=== PATIENT | female | born 1945 | race Caucasian/White ===

== ENCOUNTER 2018-04-25 17:07 | Inpatient (IN) | payer MEDICARE, OTHER ==
[2018-04-25 18:12] LABS: CHLORIDE,CL 104 mEq/L (98-106); SODIUM,NA 140 mEq/L (136-145)
--- NOTE | 2018-04-25 18:34 | EDM.PDOC ---
ED HPI GENERAL MEDICAL PROBLEM - General Chief Complaint: General Stated Complaint: malaise Time Seen by Provider: 04/25/18 18:14 - History of Present Illness INITIAL COMMENTS - FREE TEXT/NARRATIVE: Chely is a pleasant 72 year old female with PMH of type II DM, anemia, hypertension, hyperlipidemia, depression, gout, morbid obesity, and CKD, who presents to the ED via private vehicle with generalized complaint of not feeling well. She reports that since about Sunday she has not felt well. reports he noticed she was maybe a little more confused today, so he brought her in. She reports over the course of the week she has gotten more weak. She reports she did have a cough this week, but that has seemed to improve. She denies any fever, but has had some chills. She denies any dizziness , sinus congestion, chest pain, shortness of breath, abdominal pain, N/V/D, dysuria, urinary frequency/urgency. Has no real complaints other than malaise. She reports her edema in her legs is better than baseline today, does have chronic BLE edema. She reports she has been eating and drinking per normal. She has no additional complaints. Onset Date: 04/21/18 Duration: Getting Worse Location: Reports: Generalized Associated Symptoms: Reports: Confusion, Cough, cough w sputum, Fever/Chills ( chills, no fever), Malaise, Weakness. Denies: Chest Pain, Diaphoresis, Headaches, Loss of Appetite, Nausea/Vomiting, Rash, Seizure, Shortness of Breath , Syncope - Related Data Allergies Allergy/AdvReac Type Severity Reaction Status Date / Time codeine Allergy Nausea Verified 04/25/18 17:24 Home Meds: Home Meds Acetaminophen [Tylenol Arthritis Pain] 650 mg PO Q8HR PRN 12/02/13 [History] Aspirin 81 mg PO DAILY 12/02/13 [History] Atenolol 100 mg PO DAILY 12/02/13 [History] Calc/D3/Mag/Zn/Disability Services Coordinator/Jeremy/Smock [Calcium 600 MG Plus Vit D] 2 each PO DAILY [History] Citalopram Hydrobromide [Citalopram HBr] 20 mg PO DAILY 12/02/13 [History] Cyanocobalamin (Vitamin B12) [Vitamin B12] 2,000 mcg IM ASDIRECTED 12/02/13 [ History] Furosemide 80 mg PO DAILY 12/02/13 [History] Glimepiride 2 mg PO DAILY 12/02/13 [History] Iron 3 tab PO DAILY 12/02/13 [History] Lisinopril [Prinivil] 20 mg PO DAILY 12/02/13 [History] Potassium 2 tab PO DAILY 12/02/13 [History] Cholecalciferol (Vitamin D3) [Vitamin D3] 6,000 unit PO DAILY 04/25/18 [History] Insulin Glargine,Hum.Rec.Anlog [Basaglar Kwikpen U-100] 36 unit SQ BID 04/25/18 [History] Magnesium Oxide/Mag AA Chelate [Magnesium] 300 mg PO DAILY 04/25/18 [History] Past Medical History HEENT History: Reports: Cataract Cardiovascular History: Reports: Heart Failure, Hypertension, SOB on Exertion Respiratory History: Reports: SOB Genitourinary History: Reports: Renal Calculus Musculoskeletal History: Reports: Arthritis, Gout, Osteoporosis Psychiatric History: Reports: Anxiety, Depression Endocrine/Metabolic History: Reports: Diabetes, Type II, IDDM, Obesity/BMI 30+, Vitamin D Deficiency Hematologic History: Reports: Anemia, B12 Deficiency Oncologic (Cancer) History: Reports: Basal Cell Carcinoma - Past Surgical History HEENT Surgical History: Reports: None Cardiovascular Surgical History: Reports: None Respiratory Surgical History: Reports: None GI Surgical History: Reports: Cholecystectomy, Colonoscopy, Hernia, Abdominal Musculoskeletal Surgical History: Reports: None Social & Family History - Tobacco Use Smoking Status *Q: Never Smoker ED ROS GENERAL - Review of Systems Review Of Systems: See Below Constitutional: Reports: Chills, Malaise, Weakness, Fatigue. Denies: Fever, Decreased Appetite HEENT: Reports: No Symptoms Respiratory: Reports: Cough, Sputum. Denies: Shortness of Breath, Wheezing, Pleuritic Chest Pain, Hemoptysis Cardiovascular: Reports: Dyspnea on Exertion, Edema (trace BLE), Orthopnea. Denies: Chest Pain, Blood Pressure Problem, Lightheadedness, Palpitations, Syncope Endocrine: Reports: Fatigue, Low Glucose GI/Abdominal: Denies: Abdominal Pain, Black Stool, Bloody Stool, Constipation, Diarrhea, Decreased Appetite, Nausea, Vomiting : Reports: No Symptoms. Denies: Dysuria, Frequency, Urgency Musculoskeletal: Reports: No Symptoms Skin: Reports: Dryness Neurological: Reports: Confusion, Difficulty Walking (weakness), Weakness. Denies: Dizziness, Headache, Numbness, Tingling Psychiatric: Reports: No Symptoms Hematologic/Lymphatic: Reports: No Symptoms Immunologic: Reports: No Symptoms ED EXAM, GENERAL - Physical Exam Exam: See Below Exam Limited By: No Limitations General Appearance: Alert, WD/WN, No Apparent Distress Eye Exam: Bilateral Eye: EOMI, Normal Fundi, Normal Inspection, PERRL Head: Atraumatic, Normocephalic Neck: Normal Inspection, Supple, Non-Tender, Full Range of Motion Respiratory/Chest: No Respiratory Distress, No Accessory Muscle Use, Chest Non- Tender, Decreased Breath Sounds, Rhonchi (throughout). No: Accessory Muscle Use Cardiovascular: Normal Peripheral Pulses, No JVD, Systolic Murmur (grade I), Irregularly Irregular GI/Abdominal: Normal Bowel Sounds, Soft, Non-Tender, No Organomegaly, No Distention, No Abnormal Bruit, No Mass Back Exam: Normal Inspection, Full Range of Motion. No: CVA Tenderness (L), CVA Tenderness (R) Extremities: Non-Tender, Normal Capillary Refill, Pedal Edema (trace BLE), Redness. No: Increased Warmth Neurological: Alert, Oriented, CN II-XII Intact, Normal Cognition, No Motor/ Sensory Deficits Psychiatric: Normal Affect, Normal Mood Skin Exam: Warm, Dry, Intact Lymphatic: No Adenopathy EKG INTERPRETATION EKG Date: 04/25/18 Time: 18:01 Rhythm: A-Fib Rate (Beats/Min): 65 Course - Vital Signs Last Recorded V/S: Last Vital Signs Temp 97.7 F 04/25/18 19:05 Pulse 53 L 04/25/18 19:05 Resp 22 H 04/25/18 19:05 BP 101/42 L 04/25/18 19:05 Pulse Ox 97 04/25/18 19:05 - Orders/Labs/Meds Orders: Active Orders 24 hr Category Date Time Status Patient Status Manage Transfer [TRANSFER] Routine ADT 04/25/18 19:00 Ordered EKG Documentation Completion [RC] STAT Care 04/25/18 17:41 Active Chest 2V [CR] Stat Exams 04/25/18 18:21 Taken CULTURE URINE [RM] Stat Lab 04/25/18 17:53 Received NS + KCl 20mEq/L [Normal Saline with 20 mEq KCl] 1,000 Med 04/25/18 18:45 Active ml IV ASDIRECTED Resuscitation Status Routine Resus Stat 04/25/18 19:01 Ordered EKG 12 Lead [EK] Routine Ther 04/25/18 17:41 Stop Req Medication Orders Potassium Chloride/Sodium Chloride (Normal Saline With 20 Meq Kcl) 1,000 mls @ 75 mls/hr IV ASDIRECTED CINTHIA Last Admin: 04/25/18 19:03 Dose: 75 mls/hr Labs: Laboratory Tests 04/25/18 04/25/18 04/25/18 Range/Units 17:50 17:50 17:50 WBC 13.8 H (5.0-10.0) 10^3/uL RBC 3.67 L (4.00-5.50) 10^6/uL Hgb 10.2 L (12.0-16.0) g/dL Hct 33.0 L (37.0-47.0) % MCV 89.9 (82.0-94.0) fL MCH 27.8 (27.0-32.0) pg MCHC 30.9 L (33.0-38.0) g/dL RDW Coeff of Chris 16.9 H (11.0-15.0) % Plt Count 839 H (150-400) 10^3/uL Neut % (Auto) 79.3 (35-85) % Lymph % (Auto) 14.7 (10-55) % [place] % (Auto) 5.2 (0-16) % Eos % (Auto) 0.7 (0-5) % Baso % (Auto) 0.1 (0-3) % Neut # (Auto) 10.96 H (1.80-7.00) 10^3/uL Lymph # (Auto) 2.04 (1.00-4.80) 10^3/uL [place] # (Auto) 0.72 (0.00-0.80) 10^3/uL Eos # (Auto) 0.10 (0.00-0.45) 10^3/uL Baso # (Auto) 0.02 10^3/uL Sodium 140 (136-145) mEq/L Potassium 3.7 (3.5-5.0) mEq/L Chloride 104 (98-106) mEq/L Carbon Dioxide 25 (21-32) mmol/L BUN 70 H D (7-18) mg/dL Creatinine 2.2 H (0.6-1.0) mg/dL Est Cr Clr Drug Dosing 21.96 mL/min Estimated GFR (MDRD) 22 L (>=60) mL/min Glucose 51 L D (75-99) mg/dL Calcium 8.8 (8.4-10.1) mg/dL Total Bilirubin 0.2 (0.0-1.0) mg/dL AST 14 L (15-37) U/L ALT 11 L (12-78) U/L Alkaline Phosphatase 62 (46-116) U/L Troponin I < 0.017 (0.00-0.06) ng/mL C-Reactive Protein 30.4 H (0.2-0.8) mg/dL Total Protein 6.2 L (6.4-8.2) g/dL Albumin 2.2 L (3.4-5.0) g/dL Urine Color (YELLOW) Urine Appearance (CLEAR) Urine pH (4.5-8.0) Ur Specific [place] (1.003-1.020) Urine Protein (NEGATIVE) mg/dL Urine Glucose (UA) (NEGATIVE) mg/dL Urine Ketones (NEGATIVE) mg/dL Urine Occult Blood (NEGATIVE) Urine Nitrite (NEGATIVE) Urine Bilirubin (NEGATIVE) Urine Urobilinogen (0.2-1.0) EU/dL Ur Leukocyte Esterase (NEGATIVE) Urine RBC (0-5) /HPF Urine WBC (0-5) /HPF Ur Squamous Epith Cells (NOT SEEN) /HPF Urine Bacteria (NOT SEEN) /HPF 04/25/18 Range/Units 17:53 WBC (5.0-10.0) 10^3/uL RBC (4.00-5.50) 10^6/uL Hgb (12.0-16.0) g/dL Hct (37.0-47.0) % MCV (82.0-94.0) fL MCH (27.0-32.0) pg MCHC (33.0-38.0) g/dL RDW Coeff of Chris (11.0-15.0) % Plt Count (150-400) 10^3/uL Neut % (Auto) (35-85) % Lymph % (Auto) (10-55) % [place] % (Auto) (0-16) % Eos % (Auto) (0-5) % Baso % (Auto) (0-3) % Neut # (Auto) (1.80-7.00) 10^3/uL Lymph # (Auto) (1.00-4.80) 10^3/uL [place] # (Auto) (0.00-0.80) 10^3/uL Eos # (Auto) (0.00-0.45) 10^3/uL Baso # (Auto) 10^3/uL Sodium (136-145) mEq/L Potassium (3.5-5.0) mEq/L Chloride (98-106) mEq/L Carbon Dioxide (21-32) mmol/L BUN (7-18) mg/dL Creatinine (0.6-1.0) mg/dL Est Cr Clr Drug Dosing mL/min Estimated GFR (MDRD) (>=60) mL/min Glucose (75-99) mg/dL Calcium (8.4-10.1) mg/dL Total Bilirubin (0.0-1.0) mg/dL AST (15-37) U/L ALT (12-78) U/L Alkaline Phosphatase (46-116) U/L Troponin I (0.00-0.06) ng/mL C-Reactive Protein (0.2-0.8) mg/dL Total Protein (6.4-8.2) g/dL Albumin (3.4-5.0) g/dL Urine Color Yellow (YELLOW) Urine Appearance Slightly cloudy (CLEAR) Urine pH 5.0 (4.5-8.0) Ur Specific [place] <= 1.005 (1.003-1.020) Urine Protein Negative (NEGATIVE) mg/dL Urine Glucose (UA) Negative (NEGATIVE) mg/dL Urine Ketones Negative (NEGATIVE) mg/dL Urine Occult Blood Moderate H (NEGATIVE) Urine Nitrite Negative (NEGATIVE) Urine Bilirubin Negative (NEGATIVE) Urine Urobilinogen 0.2 (0.2-1.0) EU/dL Ur Leukocyte Esterase Moderate H (NEGATIVE) Urine RBC 10-20 H (0-5) /HPF Urine WBC 50-75 H (0-5) /HPF Ur Squamous Epith Cells Few H (NOT SEEN) /HPF Urine Bacteria Moderate H (NOT SEEN) /HPF Meds: Medications Generic Name Dose Route Start Last Admin Trade Name Raz PRN Reason Stop Dose Admin Potassium Chloride/Sodium Chloride 1,000 mls @ 75 mls/hr 04/25/18 18:45 04/25 19:03 Normal Saline With 20 Meq Kcl IV 75 mls/hr ASDIRECTED [facility] Administration - Re-Assessments/Exams Free Text/Narrative Re-Assessment/Exam: Discussed labs, chest xray, and EKG findings with patient and spouse. Labs reveal UTI, with significant elevation of CRP and elevated WBCs. Hgb stable at baseline. Creatinine elevated to 2.2. Glucose 51. Patient given OJ. Recheck glucose 83. Discussed recommended admission to the hospital. Patient and spouse agreeable with admission. Departure - Departure Time of Disposition: 19:16 Disposition: Admitted As Inpatient 67 Condition: Fair Clinical Impression: Acute on chronic renal insufficiency, Atrial fibrillation with controlled ventricular rate UTI (urinary tract infection) Qualifiers: Urinary tract infection type: acute cystitis Hematuria presence: without hematuria Qualified Code(s): N30.00 - Acute cystitis without hematuria Type II diabetes mellitus Qualifiers: Diabetes mellitus chcf insulin use: with chcf use Diabetes mellitus complication status: with kidney complications Diabetes mellitus complication detail: with chronic kidney disease Chronic kidney disease stage: stage 3 ( moderate) Qualified Code(s): E11.22 - Type 2 diabetes mellitus with diabetic chronic kidney disease - Discharge Information *PRESCRIPTION DRUG MONITORING PROGRAM REVIEWED*: Not Applicable *COPY OF PRESCRIPTION DRUG MONITORING REPORT IN PATIENT NIXON: Not Applicable Referrals: Waleska Rock PA-C [Primary Care Provider] - Forms: ED Department Discharge - Problem List & Annotations (1) UTI, Urinary tract infectious disease SNOMED Code(s): 25100439 Code(s): N39.0 - URINARY TRACT INFECTION, SITE NOT SPECIFIED Status: Acute Priority: High Current Visit: No (2) Atrial fibrillation with controlled ventricular rate SNOMED Code(s): 12995646 Code(s): I48.91 - UNSPECIFIED ATRIAL FIBRILLATION Status: Acute Current Visit: Yes (3) Acute on chronic renal insufficiency SNOMED Code(s): 664121439 Code(s): N28.9 - DISORDER OF KIDNEY AND URETER, UNSPECIFIED; N18.9 - CHRONIC KIDNEY DISEASE, UNSPECIFIED Status: Acute Current Visit: Yes (4) Type II diabetes mellitus SNOMED Code(s): 06775086 Code(s): E11.9 - TYPE 2 DIABETES MELLITUS WITHOUT COMPLICATIONS Status: Acute Current Visit: Yes Qualifiers: Diabetes mellitus shingle carrier insulin use: with chcf use Diabetes mellitus complication status: with kidney complications Diabetes mellitus complication detail: with chronic kidney disease Chronic kidney disease stage : stage 3 (moderate) Qualified Code(s): E11.22 - Type 2 diabetes mellitus with diabetic chronic kidney disease; N18.3 - Chronic kidney disease, stage 3 ( moderate); Z79.4 - [facility] (current) use of insulin - Problem List Review Problem List Initiated/Reviewed/Updated: Yes - My Orders Last 24 Hours: My Active Orders 04/25/18 17:41 EKG Documentation Completion [RC] STAT EKG 12 Lead [EK] Routine 04/25/18 17:53 CULTURE URINE [RM] Stat 04/25/18 18:21 Chest 2V [CR] Stat 04/25/18 18:45 NS + KCl 20mEq/L [Normal Saline with 20 mEq KCl] 1,000 ml IV ASDIRECTED 04/25/18 19:00 Patient Status Manage Transfer [TRANSFER] Routine 04/25/18 19:01 Resuscitation Status Routine - Assessment/Plan Admission H&P: Please use this note as an admission H&P Last 24 Hours: My Active Orders 04/25/18 17:41 EKG Documentation Completion [RC] STAT EKG 12 Lead [EK] Routine 04/25/18 17:53 CULTURE URINE [RM] Stat 04/25/18 18:21 Chest 2V [CR] Stat 04/25/18 18:45 NS + KCl 20mEq/L [Normal Saline with 20 mEq KCl] 1,000 ml IV ASDIRECTED 04/25/18 19:00 Patient Status Manage Transfer [TRANSFER] Routine 04/25/18 19:01 Resuscitation Status Routine Plan: UA positive. Cultured urine. Start IV Rocephin. CXR reveals no obvious infiltrates Creatinine elevated to 2.2. Baseline creatinine 1.5-1.7. Hold lasix. NS with 20 KCL at 75 mL/hr. Recheck labs in am. EKG reveals new onset atrial fibrillation. Will get echocardiogram in am. CHADS2 Score 3. INR in am. Initiate Coumadin therapy. Discussed risk of stroke etc. with patient and . Discussed risks vs. benefits of anticoagulation. They were agreeable to initiating anticoagulation. QID AC. Consistent carb diet. Home dose basalglar with low dose SSI. Consult PT for strengthening Admit acute with telemetry to Dr. Mata. Patient transferred to floor in satisfactory condition.
[2018-04-25] MEDS ORDERED: NS + KCl 20mEq/L 1,000 ML IV SCH (18:45)
[2018-04-25] MEDS ORDERED: Temazepam 15 MG Cap PO PRN (19:52)
[2018-04-25] MEDS ORDERED: Magnesium Hydroxide 400 MG/5 ML Susp 30 ML Cup PO PRN (19:52)
[2018-04-25] MEDS ORDERED: Sodium Chloride 0.9% 500 ML IV ONE (20:00)
[2018-04-25] MEDS: cefTRIAXone 1 GM Vial IVPUSH SCH (20:36)
[2018-04-25] MEDS: Insulin Aspart 100 Units/ML 3 ML Pen SUBCUT SCH (20:47)
[2018-04-25] MEDS: Insulin Detemir 100 Units/ML 3 ML Pen SUBCUT SCH (21:39)
[2018-04-26] MEDS: Acetaminophen 325 MG Tab PO PRN ×2 (04:34→13:09)
[2018-04-26] MEDS: Aspirin 81 MG Tab.Chew PO SCH (07:51)
[2018-04-26] MEDS: Atenolol 50 MG Tab PO SCH (07:51)
[2018-04-26] MEDS: Lisinopril 20 MG Tab PO SCH (07:51)
[2018-04-26] MEDS: Citalopram 10 MG Tab PO SCH (07:51)
[2018-04-26] MEDS: Insulin Aspart 100 Units/ML 3 ML Pen SUBCUT SCH ×4 (07:52→20:45)
[2018-04-26] MEDS ORDERED: Insulin Detemir 100 Units/ML 3 ML Pen SUBCUT ONE (09:43)
[2018-04-26] MEDS: Insulin Detemir 100 Units/ML 3 ML Pen SUBCUT SCH ×2 (09:49→20:43)
[2018-04-26] MEDS: Sodium Chloride 0.9% 1,000 ML IV SCH (10:30)
[2018-04-26] MEDS: Nystatin Crm 30 GM Tube TOP PRN ×2 (11:31→20:42)
[2018-04-26] MEDS: Warfarin 5 MG Tab PO SCH (12:33)
--- NOTE | 2018-04-26 16:24 | PCM.PN ---
- General Info Date of Service: 04/26/18 Admission Dx/Problem (Free Text): New Onset Atrial Fib Weakness UTI Functional Status: Reports: Pain Controlled, Tolerating Diet, Ambulating - Review of Systems General: Reports: Weakness, Fatigue. Denies: Fever HEENT: Denies: Ear Pain, Sinus Congestion, Rhinitis Pulmonary: Denies: Shortness of Breath, Cough Cardiovascular: Reports: Edema. Denies: Chest Pain Gastrointestinal: Denies: Abdominal Pain, Nausea, Vomiting Genitourinary: Reports: Frequency. Denies: Burning Musculoskeletal: Reports: No Symptoms Skin: Reports: No Symptoms Neurological: Reports: Weakness - Patient Data Vitals - Most Recent: Last Vital Signs Temp 98.0 F 04/26/18 11:52 Pulse 72 04/26/18 11:52 Resp 20 04/26/18 11:52 BP 97/42 L 04/26/18 11:52 Pulse Ox 96 04/26/18 11:52 Weight - Most Recent: 297 lb 4.8 oz Lab Results Last 24 Hours: Laboratory Results - last 24 hr 04/25/18 04/25/18 04/25/18 Range/Units 17:50 17:50 17:50 WBC 13.8 H (5.0-10.0) 10^3/uL RBC 3.67 L (4.00-5.50) 10^6/uL Hgb 10.2 L (12.0-16.0) g/dL Hct 33.0 L (37.0-47.0) % MCV 89.9 (82.0-94.0) fL MCH 27.8 (27.0-32.0) pg MCHC 30.9 L (33.0-38.0) g/dL RDW Coeff of Chris 16.9 H (11.0-15.0) % Plt Count 839 H (150-400) 10^3/uL Neut % (Auto) 79.3 (35-85) % Lymph % (Auto) 14.7 (10-55) % [place] % (Auto) 5.2 (0-16) % Eos % (Auto) 0.7 (0-5) % Baso % (Auto) 0.1 (0-3) % Neut # (Auto) 10.96 H (1.80-7.00) 10^3/uL Lymph # (Auto) 2.04 (1.00-4.80) 10^3/uL [place] # (Auto) 0.72 (0.00-0.80) 10^3/uL Eos # (Auto) 0.10 (0.00-0.45) 10^3/uL Baso # (Auto) 0.02 10^3/uL PT (9.7-12.3) SEC INR (0.92-1.18) Sodium 140 (136-145) mEq/L Potassium 3.7 (3.5-5.0) mEq/L Chloride 104 (98-106) mEq/L Carbon Dioxide 25 (21-32) mmol/L BUN 70 H D (7-18) mg/dL Creatinine 2.2 H (0.6-1.0) mg/dL Est Cr Clr Drug Dosing 21.96 mL/min Estimated GFR (MDRD) 22 L (>=60) mL/min Glucose 51 L D (75-99) mg/dL POC Glucose (75-105) mg/dl Calcium 8.8 (8.4-10.1) mg/dL Total Bilirubin 0.2 (0.0-1.0) mg/dL AST 14 L (15-37) U/L ALT 11 L (12-78) U/L Alkaline Phosphatase 62 (46-116) U/L Troponin I < 0.017 (0.00-0.06) ng/mL C-Reactive Protein 30.4 H (0.2-0.8) mg/dL Total Protein 6.2 L (6.4-8.2) g/dL Albumin 2.2 L (3.4-5.0) g/dL Urine Color (YELLOW) Urine Appearance (CLEAR) Urine pH (4.5-8.0) Ur Specific [place] (1.003-1.020) Urine Protein (NEGATIVE) mg/dL Urine Glucose (UA) (NEGATIVE) mg/dL Urine Ketones (NEGATIVE) mg/dL Urine Occult Blood (NEGATIVE) Urine Nitrite (NEGATIVE) Urine Bilirubin (NEGATIVE) Urine Urobilinogen (0.2-1.0) EU/dL Ur Leukocyte Esterase (NEGATIVE) Urine RBC (0-5) /HPF Urine WBC (0-5) /HPF Ur Squamous Epith Cells (NOT SEEN) /HPF Urine Bacteria (NOT SEEN) /HPF 04/25/18 04/25/18 04/26/18 Range/Units 17:53 20:32 06:58 WBC 9.2 (5.0-10.0) 10^3/uL RBC 3.36 L (4.00-5.50) 10^6/uL Hgb 9.3 L (12.0-16.0) g/dL Hct 30.3 L (37.0-47.0) % MCV 90.2 (82.0-94.0) fL MCH 27.7 (27.0-32.0) pg MCHC 30.7 L (33.0-38.0) g/dL RDW Coeff of Chris 16.7 H (11.0-15.0) % Plt Count 709 H (150-400) 10^3/uL Neut % (Auto) 71.6 (35-85) % Lymph % (Auto) 20.6 (10-55) % [place] % (Auto) 6.0 (0-16) % Eos % (Auto) 1.7 (0-5) % Baso % (Auto) 0.1 (0-3) % Neut # (Auto) 6.59 (1.80-7.00) 10^3/uL Lymph # (Auto) 1.90 (1.00-4.80) 10^3/uL [place] # (Auto) 0.55 (0.00-0.80) 10^3/uL Eos # (Auto) 0.16 (0.00-0.45) 10^3/uL Baso # (Auto) 0.01 10^3/uL PT (9.7-12.3) SEC INR (0.92-1.18) Sodium (136-145) mEq/L Potassium (3.5-5.0) mEq/L Chloride (98-106) mEq/L Carbon Dioxide (21-32) mmol/L BUN (7-18) mg/dL Creatinine (0.6-1.0) mg/dL Est Cr Clr Drug Dosing mL/min Estimated GFR (MDRD) (>=60) mL/min Glucose (75-99) mg/dL POC Glucose 68 L (75-105) mg/dl Calcium (8.4-10.1) mg/dL Total Bilirubin (0.0-1.0) mg/dL AST (15-37) U/L ALT (12-78) U/L Alkaline Phosphatase (46-116) U/L Troponin I (0.00-0.06) ng/mL C-Reactive Protein (0.2-0.8) mg/dL Total Protein (6.4-8.2) g/dL Albumin (3.4-5.0) g/dL Urine Color Yellow (YELLOW) Urine Appearance Slightly cloudy (CLEAR) Urine pH 5.0 (4.5-8.0) Ur Specific [place] <= 1.005 (1.003-1.020) Urine Protein Negative (NEGATIVE) mg/dL Urine Glucose (UA) Negative (NEGATIVE) mg/dL Urine Ketones Negative (NEGATIVE) mg/dL Urine Occult Blood Moderate H (NEGATIVE) Urine Nitrite Negative (NEGATIVE) Urine Bilirubin Negative (NEGATIVE) Urine Urobilinogen 0.2 (0.2-1.0) EU/dL Ur Leukocyte Esterase Moderate H (NEGATIVE) Urine RBC 10-20 H (0-5) /HPF Urine WBC 50-75 H (0-5) /HPF Ur Squamous Epith Cells Few H (NOT SEEN) /HPF Urine Bacteria Moderate H (NOT SEEN) /HPF 04/26/18 04/26/18 04/26/18 Range/Units 06:58 06:58 07:41 WBC (5.0-10.0) 10^3/uL RBC (4.00-5.50) 10^6/uL Hgb (12.0-16.0) g/dL Hct (37.0-47.0) % MCV (82.0-94.0) fL MCH (27.0-32.0) pg MCHC (33.0-38.0) g/dL RDW Coeff of Chris (11.0-15.0) % Plt Count (150-400) 10^3/uL Neut % (Auto) (35-85) % Lymph % (Auto) (10-55) % [place] % (Auto) (0-16) % Eos % (Auto) (0-5) % Baso % (Auto) (0-3) % Neut # (Auto) (1.80-7.00) 10^3/uL Lymph # (Auto) (1.00-4.80) 10^3/uL [place] # (Auto) (0.00-0.80) 10^3/uL Eos # (Auto) (0.00-0.45) 10^3/uL Baso # (Auto) 10^3/uL PT 9.9 (9.7-12.3) SEC INR 0.95 (0.92-1.18) Sodium 140 (136-145) mEq/L Potassium 4.5 D (3.5-5.0) mEq/L Chloride 106 (98-106) mEq/L Carbon Dioxide 26 (21-32) mmol/L BUN 59 H (7-18) mg/dL Creatinine 1.8 H (0.6-1.0) mg/dL Est Cr Clr Drug Dosing 26.84 mL/min Estimated GFR (MDRD) 28 L (>=60) mL/min Glucose 60 L (75-99) mg/dL POC Glucose 59 L (75-105) mg/dl Calcium 8.4 (8.4-10.1) mg/dL Total Bilirubin (0.0-1.0) mg/dL AST (15-37) U/L ALT (12-78) U/L Alkaline Phosphatase (46-116) U/L Troponin I (0.00-0.06) ng/mL C-Reactive Protein 14.7 H (0.2-0.8) mg/dL Total Protein (6.4-8.2) g/dL Albumin (3.4-5.0) g/dL Urine Color (YELLOW) Urine Appearance (CLEAR) Urine pH (4.5-8.0) Ur Specific [place] (1.003-1.020) Urine Protein (NEGATIVE) mg/dL Urine Glucose (UA) (NEGATIVE) mg/dL Urine Ketones (NEGATIVE) mg/dL Urine Occult Blood (NEGATIVE) Urine Nitrite (NEGATIVE) Urine Bilirubin (NEGATIVE) Urine Urobilinogen (0.2-1.0) EU/dL Ur Leukocyte Esterase (NEGATIVE) Urine RBC (0-5) /HPF Urine WBC (0-5) /HPF Ur Squamous Epith Cells (NOT SEEN) /HPF Urine Bacteria (NOT SEEN) /HPF 04/26/18 04/26/18 Range/Units 09:24 11:45 WBC (5.0-10.0) 10^3/uL RBC (4.00-5.50) 10^6/uL Hgb (12.0-16.0) g/dL Hct (37.0-47.0) % MCV (82.0-94.0) fL MCH (27.0-32.0) pg MCHC (33.0-38.0) g/dL RDW Coeff of Chris (11.0-15.0) % Plt Count (150-400) 10^3/uL Neut % (Auto) (35-85) % Lymph % (Auto) (10-55) % [place] % (Auto) (0-16) % Eos % (Auto) (0-5) % Baso % (Auto) (0-3) % Neut # (Auto) (1.80-7.00) 10^3/uL Lymph # (Auto) (1.00-4.80) 10^3/uL [place] # (Auto) (0.00-0.80) 10^3/uL Eos # (Auto) (0.00-0.45) 10^3/uL Baso # (Auto) 10^3/uL PT (9.7-12.3) SEC INR (0.92-1.18) Sodium (136-145) mEq/L Potassium (3.5-5.0) mEq/L Chloride (98-106) mEq/L Carbon Dioxide (21-32) mmol/L BUN (7-18) mg/dL Creatinine (0.6-1.0) mg/dL Est Cr Clr Drug Dosing mL/min Estimated GFR (MDRD) (>=60) mL/min Glucose (75-99) mg/dL POC Glucose 133 H 120 H (75-105) mg/dl Calcium (8.4-10.1) mg/dL Total Bilirubin (0.0-1.0) mg/dL AST (15-37) U/L ALT (12-78) U/L Alkaline Phosphatase (46-116) U/L Troponin I (0.00-0.06) ng/mL C-Reactive Protein (0.2-0.8) mg/dL Total Protein (6.4-8.2) g/dL Albumin (3.4-5.0) g/dL Urine Color (YELLOW) Urine Appearance (CLEAR) Urine pH (4.5-8.0) Ur Specific [place] (1.003-1.020) Urine Protein (NEGATIVE) mg/dL Urine Glucose (UA) (NEGATIVE) mg/dL Urine Ketones (NEGATIVE) mg/dL Urine Occult Blood (NEGATIVE) Urine Nitrite (NEGATIVE) Urine Bilirubin (NEGATIVE) Urine Urobilinogen (0.2-1.0) EU/dL Ur Leukocyte Esterase (NEGATIVE) Urine RBC (0-5) /HPF Urine WBC (0-5) /HPF Ur Squamous Epith Cells (NOT SEEN) /HPF Urine Bacteria (NOT SEEN) /HPF Matthew Results Last 24 Hours: Microbiology 04/25/18 17:53 Urine Culture - Preliminary Urine, Bladder Med Orders - Current: Current Medications Acetaminophen (Tylenol) 650 mg PO Q8H PRN PRN Reason: Pain Last Admin: 04/26/18 13:09 Dose: 650 mg Aspirin (Aspirin) 81 mg PO DAILY [facility] Last Admin: 04/26/18 07:51 Dose: 81 mg Atenolol (Tenormin) 100 mg PO DAILY [facility] Last Admin: 04/26/18 07:51 Dose: 100 mg Ceftriaxone Sodium (Rocephin) 1 gm IVPUSH Q24H [facility] Last Admin: 04/25/18 20:36 Dose: 1 gm Citalopram Hydrobromide (Celexa) 20 mg PO DAILY [facility] Last Admin: 04/26/18 07:51 Dose: 20 mg Sodium Chloride (Normal Saline) 1,000 mls @ 75 mls/hr IV ASDIRECTED [facility] Last Admin: 04/26/18 10:30 Dose: 75 mls/hr Insulin Aspart (Novolog) 0 unit SUBCUT WITHMEALSANDBED [facility]; Protocol Last Admin: 04/26/18 12:30 Dose: Not Given Insulin Detemir (Levemir) 36 unit SUBCUT BID [facility] Last Admin: 04/26/18 09:49 Dose: Not Given Lisinopril (Prinivil) 20 mg PO DAILY [facility] Last Admin: 04/26/18 07:51 Dose: 20 mg Magnesium Hydroxide (Milk Of Magnesia) 30 ml PO Q12H PRN PRN Reason: Constipation Nystatin (Nystatin Crm) 1 gm TOP QID PRN PRN Reason: Itching Last Admin: 04/26/18 11:31 Dose: 1 gm Temazepam (Restoril) 15 mg PO BEDTIME PRN PRN Reason: Sleep Warfarin Sodium (Coumadin) 5 mg PO DAILY@1200 [facility] Last Admin: 04/26/18 12:33 Dose: 5 mg Discontinued Medications Potassium Chloride/Sodium Chloride (Normal Saline With 20 Meq Kcl) 1,000 mls @ 75 mls/hr IV ASDIRECTED [facility] Last Admin: 04/25/18 19:03 Dose: 75 mls/hr Sodium Chloride (Normal Saline) 500 mls @ 500 mls/hr IV ONETIME ONE Stop: 04/25/18 20:59 Last Admin: 04/25/18 20:36 Dose: 500 mls/hr Insulin Detemir (Levemir) 18 unit SUBCUT ONETIME ONE Stop: 04/26/18 09:44 Last Admin: 04/26/18 10:24 Dose: 18 units - Exam General: Alert, Oriented HEENT: Mucous Membr. Moist/[place] Neck: Supple Lungs: Clear to Auscultation, Normal Respiratory Effort Cardiovascular: Irregular Rhythm, Murmurs GI/Abdominal Exam: Normal Bowel Sounds, Soft, Non-Tender Extremities: Normal Inspection, Pedal Edema (trace of edema in lower extremities ) Skin: Warm, Dry Neurological: No New Focal Deficit - Problem List & Annotations (1) Acute on chronic renal insufficiency SNOMED Code(s): 047529127 Code(s): N28.9 - DISORDER OF KIDNEY AND URETER, UNSPECIFIED; N18.9 - CHRONIC KIDNEY DISEASE, UNSPECIFIED Status: Acute Priority: High Current Visit: Yes (2) Atrial fibrillation with controlled ventricular rate SNOMED Code(s): 85423482 Code(s): I48.91 - UNSPECIFIED ATRIAL FIBRILLATION Status: Acute Priority : High Current Visit: Yes (3) Type II diabetes mellitus SNOMED Code(s): 22048661 Code(s): E11.9 - TYPE 2 DIABETES MELLITUS WITHOUT COMPLICATIONS Status: Acute Priority: Medium Current Visit: Yes Qualifiers: Diabetes mellitus fci insulin use: with fci use Diabetes mellitus complication status: with kidney complications Diabetes mellitus complication detail: with chronic kidney disease Chronic kidney disease stage : stage 3 (moderate) Qualified Code(s): E11.22 - Type 2 diabetes mellitus with diabetic chronic kidney disease; N18.3 - Chronic kidney disease, stage 3 ( moderate); Z79.4 - long-term (current) use of insulin (4) UTI (urinary tract infection) SNOMED Code(s): 41121415 Code(s): N39.0 - URINARY TRACT INFECTION, SITE NOT SPECIFIED Status: Acute Current Visit: Yes Qualifiers: Urinary tract infection type: acute cystitis Hematuria presence: without hematuria Qualified Code(s): N30.00 - Acute cystitis without hematuria - Problem List Review Problem List Initiated/Reviewed/Updated: Yes - My Orders Last 24 Hours: My Active Orders 04/26/18 08:00 Sodium Chloride 0.9% [Normal Saline] 1,000 ml IV ASDIRECTED 04/26/18 08:50 Nystatin [Nystatin Crm] 1 gm TOP QID PRN - Assessment Assessment:: New onset Atrial Fib Weakness UTI - Plan Plan:: Patient feeling better today. Does still feel weak, especially in her legs. Edema is improved, trace today. Telemetry shows atrial fib with rate controlled to 72-80. Blood pressure 89/44. Denies shortness of breath at present but does have dyspnea with exertion. Afebrile. Labs are improved today , WBC improved to 9.2, hemoglobin 9.3. Creatinine improved to 2.2 with IV fluids. Potassium elevated at 4.5 now. CRP down from 30.4 to 14.7. Coumadin was started today. Will continue with IV Rocephin. IV fluids changed to NS, stop the potassium. Follow daily INR. Await echo results.
[2018-04-26] MEDS: cefTRIAXone 1 GM Vial IVPUSH SCH (19:39)
[2018-04-27] MEDS: Acetaminophen 325 MG Tab PO PRN ×2 (00:02→15:17)
[2018-04-27] MEDS: Sodium Chloride 0.9% 1,000 ML IV SCH ×2 (00:14→13:44)
--- NOTE | 2018-04-27 06:38 | PCM.PN ---
- General Info Date of Service: 04/27/18 Functional Status: Reports: Pain Controlled, Tolerating Diet, Ambulating - Review of Systems General: Reports: Weakness (generally weak). Denies: Fever HEENT: Reports: No Symptoms Pulmonary: Reports: No Symptoms. Denies: Shortness of Breath, Cough, Sputum, Wheezing Cardiovascular: Reports: Dyspnea on Exertion (mild). Denies: Chest Pain, Edema Gastrointestinal: Reports: No Symptoms. Denies: Abdominal Pain Genitourinary: Reports: No Symptoms Musculoskeletal: Reports: No Symptoms Skin: Reports: No Symptoms. Denies: Cyanosis Neurological: Reports: No Symptoms. Denies: Confusion, Dizziness, Headache Psychiatric: Reports: No Symptoms - Patient Data Vitals - Most Recent: Last Vital Signs Temp 97.3 F 04/26/18 23:59 Pulse 69 04/26/18 23:59 Resp 20 04/26/18 23:59 BP 101/42 L 04/26/18 23:59 Pulse Ox 97 04/26/18 23:59 Weight - Most Recent: 297 lb 4.8 oz I&O - Last 24 Hours: Intake & Output 04/26/18 04/26/18 04/27/18 14:59 22:59 06:59 Intake Total 1000 Balance 1000 Lab Results Last 24 Hours: Laboratory Results - last 24 hr 04/26/18 04/26/18 04/26/18 Range/Units 06:58 06:58 06:58 WBC 9.2 (5.0-10.0) 10^3/uL RBC 3.36 L (4.00-5.50) 10^6/uL Hgb 9.3 L (12.0-16.0) g/dL Hct 30.3 L (37.0-47.0) % MCV 90.2 (82.0-94.0) fL MCH 27.7 (27.0-32.0) pg MCHC 30.7 L (33.0-38.0) g/dL RDW Coeff of Chris 16.7 H (11.0-15.0) % Plt Count 709 H (150-400) 10^3/uL Neut % (Auto) 71.6 (35-85) % Lymph % (Auto) 20.6 (10-55) % [place] % (Auto) 6.0 (0-16) % Eos % (Auto) 1.7 (0-5) % Baso % (Auto) 0.1 (0-3) % Neut # (Auto) 6.59 (1.80-7.00) 10^3/uL Lymph # (Auto) 1.90 (1.00-4.80) 10^3/uL [place] # (Auto) 0.55 (0.00-0.80) 10^3/uL Eos # (Auto) 0.16 (0.00-0.45) 10^3/uL Baso # (Auto) 0.01 10^3/uL PT 9.9 (9.7-12.3) SEC INR 0.95 (0.92-1.18) Sodium 140 (136-145) mEq/L Potassium 4.5 D (3.5-5.0) mEq/L Chloride 106 (98-106) mEq/L Carbon Dioxide 26 (21-32) mmol/L BUN 59 H (7-18) mg/dL Creatinine 1.8 H (0.6-1.0) mg/dL Est Cr Clr Drug Dosing 26.84 mL/min Estimated GFR (MDRD) 28 L (>=60) mL/min Glucose 60 L (75-99) mg/dL POC Glucose (75-105) mg/dl Calcium 8.4 (8.4-10.1) mg/dL C-Reactive Protein 14.7 H (0.2-0.8) mg/dL 04/26/18 04/26/18 04/26/18 Range/Units 07:41 09:24 11:45 WBC (5.0-10.0) 10^3/uL RBC (4.00-5.50) 10^6/uL Hgb (12.0-16.0) g/dL Hct (37.0-47.0) % MCV (82.0-94.0) fL MCH (27.0-32.0) pg MCHC (33.0-38.0) g/dL RDW Coeff of Chris (11.0-15.0) % Plt Count (150-400) 10^3/uL Neut % (Auto) (35-85) % Lymph % (Auto) (10-55) % [place] % (Auto) (0-16) % Eos % (Auto) (0-5) % Baso % (Auto) (0-3) % Neut # (Auto) (1.80-7.00) 10^3/uL Lymph # (Auto) (1.00-4.80) 10^3/uL [place] # (Auto) (0.00-0.80) 10^3/uL Eos # (Auto) (0.00-0.45) 10^3/uL Baso # (Auto) 10^3/uL PT (9.7-12.3) SEC INR (0.92-1.18) Sodium (136-145) mEq/L Potassium (3.5-5.0) mEq/L Chloride (98-106) mEq/L Carbon Dioxide (21-32) mmol/L BUN (7-18) mg/dL Creatinine (0.6-1.0) mg/dL Est Cr Clr Drug Dosing mL/min Estimated GFR (MDRD) (>=60) mL/min Glucose (75-99) mg/dL POC Glucose 59 L 133 H 120 H (75-105) mg/dl Calcium (8.4-10.1) mg/dL C-Reactive Protein (0.2-0.8) mg/dL 04/26/18 Range/Units 17:25 WBC (5.0-10.0) 10^3/uL RBC (4.00-5.50) 10^6/uL Hgb (12.0-16.0) g/dL Hct (37.0-47.0) % MCV (82.0-94.0) fL MCH (27.0-32.0) pg MCHC (33.0-38.0) g/dL RDW Coeff of Chris (11.0-15.0) % Plt Count (150-400) 10^3/uL Neut % (Auto) (35-85) % Lymph % (Auto) (10-55) % [place] % (Auto) (0-16) % Eos % (Auto) (0-5) % Baso % (Auto) (0-3) % Neut # (Auto) (1.80-7.00) 10^3/uL Lymph # (Auto) (1.00-4.80) 10^3/uL [place] # (Auto) (0.00-0.80) 10^3/uL Eos # (Auto) (0.00-0.45) 10^3/uL Baso # (Auto) 10^3/uL PT (9.7-12.3) SEC INR (0.92-1.18) Sodium (136-145) mEq/L Potassium (3.5-5.0) mEq/L Chloride (98-106) mEq/L Carbon Dioxide (21-32) mmol/L BUN (7-18) mg/dL Creatinine (0.6-1.0) mg/dL Est Cr Clr Drug Dosing mL/min Estimated GFR (MDRD) (>=60) mL/min Glucose (75-99) mg/dL POC Glucose 120 H (75-105) mg/dl Calcium (8.4-10.1) mg/dL C-Reactive Protein (0.2-0.8) mg/dL Matthew Results Last 24 Hours: Microbiology 04/25/18 17:53 Urine Culture - Preliminary Urine, Bladder Med Orders - Current: Current Medications Acetaminophen (Tylenol) 650 mg PO Q8H PRN PRN Reason: Pain Last Admin: 04/27/18 00:02 Dose: 650 mg Aspirin (Aspirin) 81 mg PO DAILY [facility] Last Admin: 04/26/18 07:51 Dose: 81 mg Atenolol (Tenormin) 100 mg PO DAILY [facility] Last Admin: 04/26/18 07:51 Dose: 100 mg Ceftriaxone Sodium (Rocephin) 1 gm IVPUSH Q24H [facility] Last Admin: 04/26/18 19:39 Dose: 1 gm Citalopram Hydrobromide (Celexa) 20 mg PO DAILY [facility] Last Admin: 04/26/18 07:51 Dose: 20 mg Sodium Chloride (Normal Saline) 1,000 mls @ 75 mls/hr IV ASDIRECTED [facility] Last Admin: 04/27/18 00:14 Dose: 75 mls/hr Insulin Aspart (Novolog) 0 unit SUBCUT WITHMEALSANDBED [facility]; Protocol Last Admin: 04/26/18 20:45 Dose: Not Given Insulin Detemir (Levemir) 36 unit SUBCUT BID [facility] Last Admin: 04/26/18 20:43 Dose: 36 unit Lisinopril (Prinivil) 20 mg PO DAILY [facility] Last Admin: 04/26/18 07:51 Dose: 20 mg Magnesium Hydroxide (Milk Of Magnesia) 30 ml PO Q12H PRN PRN Reason: Constipation Nystatin (Nystatin Crm) 1 gm TOP QID PRN PRN Reason: Itching Last Admin: 04/26/18 20:42 Dose: 1 applic Temazepam (Restoril) 15 mg PO BEDTIME PRN PRN Reason: Sleep Warfarin Sodium (Coumadin) 5 mg PO DAILY@1200 [facility] Last Admin: 04/26/18 12:33 Dose: 5 mg Discontinued Medications Potassium Chloride/Sodium Chloride (Normal Saline With 20 Meq Kcl) 1,000 mls @ 75 mls/hr IV ASDIRECTED [facility] Last Admin: 04/25/18 19:03 Dose: 75 mls/hr Sodium Chloride (Normal Saline) 500 mls @ 500 mls/hr IV ONETIME ONE Stop: 04/25/18 20:59 Last Admin: 04/25/18 20:36 Dose: 500 mls/hr Insulin Detemir (Levemir) 18 unit SUBCUT ONETIME ONE Stop: 04/26/18 09:44 Last Admin: 04/26/18 10:24 Dose: 18 units - Exam General: Alert, Oriented, Cooperative, No Acute Distress, Other (generally weak) HEENT: Pupils Equal, Pupils Reactive, Mucous Membr. Moist/[place] Neck: Supple Lungs: Clear to Auscultation, Normal Respiratory Effort. No: Decreased Breath Sounds Cardiovascular: Regular Rate, Regular Rhythm GI/Abdominal Exam: Normal Bowel Sounds, Soft, Non-Tender, No Organomegaly, No Distention, No Abnormal Bruit, No Mass, Pelvis Stable Back Exam: Normal Inspection, Full Range of Motion Extremities: Normal Inspection, Normal Range of Motion, Non-Tender, Normal Capillary Refill, Pedal Edema (+1 BLE) Peripheral Pulses: 2+: Posterior Tibial (L), Posterior Tibial (R), Dorsalis Pedis (L), Dorsalis Pedis (R) Skin: Warm, Dry, Intact Neurological: No New Focal Deficit Psy/Mental Status: Alert, Normal Affect, Normal Mood - Problem List Review Problem List Initiated/Reviewed/Updated: Yes - Assessment Assessment:: New onset Atrial Fib Weakness UTI - Plan Plan:: Patient feeling better today. Does still feel weak, especially in her legs. Edema is improved, trace today. Telemetry shows atrial fib with rate controlled to 72-80. Blood pressure 89/44. Denies shortness of breath at present but does have dyspnea with exertion. Afebrile. Labs are improved today , WBC improved to 9.2, hemoglobin 9.3. Creatinine improved to 2.2 with IV fluids. Potassium elevated at 4.5 now. CRP down from 30.4 to 14.7. Coumadin was started today. Will continue with IV Rocephin. IV fluids changed to NS, stop the potassium. Follow daily INR. Await echo results. 04/27/18 0600 The patient was admitted with leukocytosis. It was discovered yesterday that the patient had new onset a-fib. The patient was started on Coumadin yesterday. The patient reports this morning she has not been able to sleep well due to not being at home. The patient reports that she still is having some generalized weakness, and dyspnea on exertion. The patient reports she is feeling a little improved form yesterday though. The patient is sitting in recliner in upright position resting when I entered the room. She was easily arroused, and alert and oriented. The patient reports that she is sleeping in a chair because she could not sleep in the bed due to not being at home and she does have some mild shortness of breath with laying down. The patient today does have BLE +1 edema present. Her labs were improved yesterday, will evaluate these today once they become available. At this time, no PT/INR results are available. We will continue her IV Rocphin, IV fuilds, conitnue to minotor her SOA, review labs, and await echo results.
[2018-04-27] MEDS: Lisinopril 20 MG Tab PO SCH (08:01)
[2018-04-27] MEDS: Citalopram 10 MG Tab PO SCH (08:01)
[2018-04-27] MEDS: Atenolol 50 MG Tab PO SCH (08:02)
[2018-04-27] MEDS: Insulin Aspart 100 Units/ML 3 ML Pen SUBCUT SCH ×4 (08:02→20:21)
[2018-04-27] MEDS: Aspirin 81 MG Tab.Chew PO SCH (08:02)
[2018-04-27] MEDS: Insulin Detemir 100 Units/ML 3 ML Pen SUBCUT SCH ×2 (08:07→20:19)
[2018-04-27] MEDS: Warfarin 5 MG Tab PO SCH (12:07)
[2018-04-27] MEDS: cefTRIAXone 1 GM Vial IVPUSH SCH (20:00)
[2018-04-27] MEDS: Nystatin Crm 30 GM Tube TOP PRN (20:20)
[2018-04-28] MEDS: Acetaminophen 325 MG Tab PO PRN (02:39)
[2018-04-28] MEDS: Sodium Chloride 0.9% 1,000 ML IV SCH (03:05)
[2018-04-28] MEDS: Citalopram 10 MG Tab PO SCH (08:28)
[2018-04-28] MEDS: Atenolol 50 MG Tab PO SCH (08:29)
[2018-04-28] MEDS: Aspirin 81 MG Tab.Chew PO SCH (08:29)
[2018-04-28] MEDS: Lisinopril 20 MG Tab PO SCH (08:29)
[2018-04-28] MEDS: Insulin Detemir 100 Units/ML 3 ML Pen SUBCUT SCH ×2 (08:30→20:08)
[2018-04-28] MEDS: Insulin Aspart 100 Units/ML 3 ML Pen SUBCUT SCH ×4 (08:30→20:07)
[2018-04-28] MEDS ORDERED: Loperamide 2 MG Cap PO PRN (11:48)
--- NOTE | 2018-04-28 12:20 | PCM.PN ---
- General Info Date of Service: 04/28/18 Functional Status: Reports: Pain Controlled, Tolerating Diet, Ambulating - Review of Systems General: Reports: No Symptoms HEENT: Reports: No Symptoms Pulmonary: Reports: Shortness of Breath (mild). Denies: Cough, Sputum Cardiovascular: Reports: Dyspnea on Exertion (mild) Gastrointestinal: Reports: No Symptoms Genitourinary: Reports: No Symptoms Musculoskeletal: Reports: No Symptoms Skin: Reports: No Symptoms Neurological: Reports: No Symptoms Psychiatric: Reports: No Symptoms - Patient Data Vitals - Most Recent: Last Vital Signs Temp 96.9 F 04/28/18 07:39 Pulse 67 04/28/18 07:39 Resp 20 04/28/18 07:39 BP 104/41 L 04/28/18 07:39 Pulse Ox 95 04/28/18 07:39 Weight - Most Recent: 297 lb 4.8 oz I&O - Last 24 Hours: Intake & Output 04/27/18 04/28/18 04/28/18 22:59 06:59 14:59 Intake Total 1000 Balance 1000 Lab Results Last 24 Hours: Laboratory Results - last 24 hr 04/27/18 04/27/18 04/28/18 Range/Units 17:13 20:09 07:35 WBC (5.0-10.0) 10^3/uL RBC (4.00-5.50) 10^6/uL Hgb (12.0-16.0) g/dL Hct (37.0-47.0) % MCV (82.0-94.0) fL MCH (27.0-32.0) pg MCHC (33.0-38.0) g/dL RDW Coeff of Chris (11.0-15.0) % Plt Count (150-400) 10^3/uL Neut % (Auto) (35-85) % Lymph % (Auto) (10-55) % [place] % (Auto) (0-16) % Eos % (Auto) (0-5) % Baso % (Auto) (0-3) % Neut # (Auto) (1.80-7.00) 10^3/uL Lymph # (Auto) (1.00-4.80) 10^3/uL [place] # (Auto) (0.00-0.80) 10^3/uL Eos # (Auto) (0.00-0.45) 10^3/uL Baso # (Auto) 10^3/uL PT (9.7-12.3) SEC INR (0.92-1.18) Sodium (136-145) mEq/L Potassium (3.5-5.0) mEq/L Chloride (98-106) mEq/L Carbon Dioxide (21-32) mmol/L BUN (7-18) mg/dL Creatinine (0.6-1.0) mg/dL Est Cr Clr Drug Dosing mL/min Estimated GFR (MDRD) (>=60) mL/min Glucose (75-99) mg/dL POC Glucose 135 H 147 H 56 L (75-105) mg/dl Calcium (8.4-10.1) mg/dL C-Reactive Protein (0.2-0.8) mg/dL 04/28/18 04/28/18 04/28/18 Range/Units 07:44 07:44 07:44 WBC 8.3 (5.0-10.0) 10^3/uL RBC 3.19 L (4.00-5.50) 10^6/uL Hgb 8.8 L (12.0-16.0) g/dL Hct 29.6 L (37.0-47.0) % MCV 92.8 (82.0-94.0) fL MCH 27.6 (27.0-32.0) pg MCHC 29.7 L (33.0-38.0) g/dL RDW Coeff of Chris 17.2 H (11.0-15.0) % Plt Count 617 H (150-400) 10^3/uL Neut % (Auto) 65.5 (35-85) % Lymph % (Auto) 27.1 (10-55) % [place] % (Auto) 4.2 (0-16) % Eos % (Auto) 3.1 (0-5) % Baso % (Auto) 0.1 (0-3) % Neut # (Auto) 5.42 (1.80-7.00) 10^3/uL Lymph # (Auto) 2.24 (1.00-4.80) 10^3/uL [place] # (Auto) 0.35 (0.00-0.80) 10^3/uL Eos # (Auto) 0.26 (0.00-0.45) 10^3/uL Baso # (Auto) 0.01 10^3/uL PT 10.5 (9.7-12.3) SEC INR 1.01 (0.92-1.18) Sodium 146 H (136-145) mEq/L Potassium 4.1 (3.5-5.0) mEq/L Chloride 113 H (98-106) mEq/L Carbon Dioxide 24 (21-32) mmol/L BUN 32 H (7-18) mg/dL Creatinine 1.5 H (0.6-1.0) mg/dL Est Cr Clr Drug Dosing 32.20 mL/min Estimated GFR (MDRD) 34 L (>=60) mL/min Glucose 58 L (75-99) mg/dL POC Glucose (75-105) mg/dl Calcium 8.3 L (8.4-10.1) mg/dL C-Reactive Protein 2.3 H (0.2-0.8) mg/dL 04/28/18 Range/Units 11:55 WBC (5.0-10.0) 10^3/uL RBC (4.00-5.50) 10^6/uL Hgb (12.0-16.0) g/dL Hct (37.0-47.0) % MCV (82.0-94.0) fL MCH (27.0-32.0) pg MCHC (33.0-38.0) g/dL RDW Coeff of Chris (11.0-15.0) % Plt Count (150-400) 10^3/uL Neut % (Auto) (35-85) % Lymph % (Auto) (10-55) % [place] % (Auto) (0-16) % Eos % (Auto) (0-5) % Baso % (Auto) (0-3) % Neut # (Auto) (1.80-7.00) 10^3/uL Lymph # (Auto) (1.00-4.80) 10^3/uL [place] # (Auto) (0.00-0.80) 10^3/uL Eos # (Auto) (0.00-0.45) 10^3/uL Baso # (Auto) 10^3/uL PT (9.7-12.3) SEC INR (0.92-1.18) Sodium (136-145) mEq/L Potassium (3.5-5.0) mEq/L Chloride (98-106) mEq/L Carbon Dioxide (21-32) mmol/L BUN (7-18) mg/dL Creatinine (0.6-1.0) mg/dL Est Cr Clr Drug Dosing mL/min Estimated GFR (MDRD) (>=60) mL/min Glucose (75-99) mg/dL POC Glucose 67 L (75-105) mg/dl Calcium (8.4-10.1) mg/dL C-Reactive Protein (0.2-0.8) mg/dL Matthew Results Last 24 Hours: Microbiology 04/25/18 17:53 Urine Culture - Final Urine, Bladder Med Orders - Current: Current Medications Acetaminophen (Tylenol) 650 mg PO Q8H PRN PRN Reason: Pain Last Admin: 04/28/18 02:39 Dose: 650 mg Aspirin (Aspirin) 81 mg PO DAILY [facility] Last Admin: 04/28/18 08:29 Dose: 81 mg Atenolol (Tenormin) 100 mg PO DAILY [facility] Last Admin: 04/28/18 08:29 Dose: 100 mg Ceftriaxone Sodium (Rocephin) 1 gm IVPUSH Q24H [facility] Last Admin: 04/27/18 20:00 Dose: 1 gm Citalopram Hydrobromide (Celexa) 20 mg PO DAILY [facility] Last Admin: 04/28/18 08:28 Dose: 20 mg Insulin Aspart (Novolog) 0 unit SUBCUT WITHMEALSANDBED [facility]; Protocol Last Admin: 04/28/18 08:30 Dose: Not Given Insulin Detemir (Levemir) 30 unit SUBCUT BID [facility] Lisinopril (Prinivil) 20 mg PO DAILY [facility] Last Admin: 04/28/18 08:29 Dose: 20 mg Loperamide HCl (Imodium) 2 mg PO Q6H PRN PRN Reason: Diarrhea Magnesium Hydroxide (Milk Of Magnesia) 30 ml PO Q12H PRN PRN Reason: Constipation Nystatin (Nystatin Crm) 1 gm TOP QID PRN PRN Reason: Itching Last Admin: 04/27/18 20:20 Dose: 1 applic Temazepam (Restoril) 15 mg PO BEDTIME PRN PRN Reason: Sleep Warfarin Sodium (Coumadin) 5 mg PO DAILY@1200 [facility] Last Admin: 04/27/18 12:07 Dose: 5 mg Warfarin Sodium (Coumadin) 10 mg PO DAILY [facility] Stop: 04/29/18 23:59 Discontinued Medications Potassium Chloride/Sodium Chloride (Normal Saline With 20 Meq Kcl) 1,000 mls @ 75 mls/hr IV ASDIRECTED [facility] Last Admin: 04/25/18 19:03 Dose: 75 mls/hr Sodium Chloride (Normal Saline) 500 mls @ 500 mls/hr IV ONETIME ONE Stop: 04/25/18 20:59 Last Admin: 04/25/18 20:36 Dose: 500 mls/hr Sodium Chloride (Normal Saline) 1,000 mls @ 75 [facility]ls[facility] Last Admin: 04/28/18 03:05 Dose: 75 mls/hr Insulin Detemir (Levemir) 36 unit SUBCUT BID [facility] Last Admin: 04/28/18 08:30 Dose: 36 unit Insulin Detemir (Levemir) 18 unit SUBCUT ONETIME ONE Stop: 04/26/18 09:44 Last Admin: 04/26/18 10:24 Dose: 18 units - Exam General: Alert, Oriented, Cooperative, No Acute Distress Neck: Supple Lungs: Normal Respiratory Effort, Rhonchi (mild bilateral upper lobes) Cardiovascular: Regular Rate GI/Abdominal Exam: Normal Bowel Sounds, Soft, Non-Tender Back Exam: Normal Inspection, Full Range of Motion Extremities: Normal Inspection, Normal Range of Motion, Non-Tender, No Pedal Edema, Normal Capillary Refill Peripheral Pulses: 2+: Radial (L), Radial (R), Posterior Tibial (L), Posterior Tibial (R), Dorsalis Pedis (L), Dorsalis Pedis (R) Skin: Warm, Dry, Intact Psy/Mental Status: Alert, Normal Affect, Depressed (patient reports tearful this morning. Denies suicidal and homicidal ideations. ) - Problem List Review Problem List Initiated/Reviewed/Updated: Yes - My Orders Last 24 Hours: My Active Orders 04/28/18 10:16 Chest 2V [CR] Stat 04/28/18 11:48 Loperamide [Imodium] 2 mg PO Q6H PRN 04/28/18 12:00 Warfarin [Coumadin] 10 mg PO DAILY 04/28/18 20:00 Insulin Detemir [Levemir] 30 unit SUBCUT BID - Assessment Assessment:: New onset Atrial Fib Weakness UTI - Plan Plan:: Patient feeling better today. Does still feel weak, especially in her legs. Edema is improved, trace today. Telemetry shows atrial fib with rate controlled to 72-80. Blood pressure 89/44. Denies shortness of breath at present but does have dyspnea with exertion. Afebrile. Labs are improved today , WBC improved to 9.2, hemoglobin 9.3. Creatinine improved to 2.2 with IV fluids. Potassium elevated at 4.5 now. CRP down from 30.4 to 14.7. Coumadin was started today. Will continue with IV Rocephin. IV fluids changed to NS, stop the potassium. Follow daily INR. Await echo results. 04/27/18 0600 The patient was admitted with leukocytosis. It was discovered yesterday that the patient had new onset a-fib. The patient was started on Coumadin yesterday. The patient reports this morning she has not been able to sleep well due to not being at home. The patient reports that she still is having some generalized weakness, and dyspnea on exertion. The patient reports she is feeling a little improved form yesterday though. The patient is sitting in recliner in upright position resting when I entered the room. She was easily aroused, and alert and oriented. The patient reports that she is sleeping in a chair because she could not sleep in the bed due to not being at home and she does have some mild shortness of breath with laying down. The patient today does have BLE +1 edema present. Her labs were improved yesterday, will evaluate these today once they become available. At this time, no PT/INR results are available. We will continue her IV Rocephin, IV fluids, continue to monitor her SOA, review labs, and await echo results. 04/28/18 1100 The patient continues with admit today. THe patient reports that she is still feeling good, except her engergy is a little dclined form yesterday. She also reports that she has been a little tearful today. She reports this is chronic and she calls it her "PMS". The patient reports some mild shortness of breath. THe patient denies linton, dizziness, n, v, d, f, cp, abd pain, urinary/bowel changes, edema. The patient is able to shower today with some assistance. Labs are good. INR remains low at 1.01. I have increased her coumadin for the next 2 days to 10mg QD. Will continue admit and continue currnet plan and treatment. I did add a CXR due to some minimal Rhonchi on auscultation. THe patient HR is 60- 80s a-fib. The plan for this patient is to hopefully discharge home tomorrow. I am hopeful that an increase by doubling her coumadin will increase her INR to become therapeutic. The patient reports that she overall is feeling well and thinks she could go home tomorrow as well. Pending her lab results, patient presentation, and CXR results tomorrow will determine her possible discharge.
[2018-04-28] MEDS: Warfarin 5 MG Tab PO SCH (12:24)
[2018-04-28] MEDS: cefTRIAXone 1 GM Vial IVPUSH SCH (20:07)
[2018-04-28] MEDS: Nystatin Crm 30 GM Tube TOP PRN (21:34)
[2018-04-29] MEDS: Acetaminophen 325 MG Tab PO PRN (03:59)
[2018-04-29] MEDS: Aspirin 81 MG Tab.Chew PO SCH (07:50)
[2018-04-29] MEDS: Citalopram 10 MG Tab PO SCH (07:50)
[2018-04-29] MEDS: Atenolol 50 MG Tab PO SCH (07:57)
[2018-04-29] MEDS: Lisinopril 20 MG Tab PO SCH (07:58)
[2018-04-29 08:01] VITALS: BP 121/61
[2018-04-29] MEDS: Warfarin 5 MG Tab PO SCH (08:06)
[2018-04-29] MEDS: Insulin Detemir 100 Units/ML 3 ML Pen SUBCUT SCH (08:07)
[2018-04-29] MEDS: Insulin Aspart 100 Units/ML 3 ML Pen SUBCUT SCH (08:08)
--- NOTE | 2018-04-29 22:42 | PCM.DCSUM1 ---
Discharge Summary - Hospital Course Free Text/Narrative:: Patient is a 72 year old female who presented to the ER with complaints of generally just not feeling well. Has been ill for about 5 days with increased weakness, mild cough and family reporting increased confusion. Had not had any head trauma. Did not report any fevers, chest discomfort, shortness of breath or abdominal complaints. WBC count 13.8 in ER with an elevated CRP of 30.4. UA did show moderate bacteria. Admitted for IV fluids, antibiotics and physical therapy. Diagnosis: Stroke: No Modified Mary Ellen Scale: No Symptoms at All Modified Luna Scale Score: 0 - Discharge Data Discharge Date: 04/29/18 Discharge Disposition: Home, Home Health Agency 06 Condition: Good - Discharge Diagnosis/Problem(s) (1) Acute on chronic renal insufficiency SNOMED Code(s): 689429225 ICD Code: N28.9 - DISORDER OF KIDNEY AND URETER, UNSPECIFIED; N18.9 - CHRONIC KIDNEY DISEASE, UNSPECIFIED Status: Acute Priority: High (2) Atrial fibrillation with controlled ventricular rate SNOMED Code(s): 92682578 ICD Code: I48.91 - UNSPECIFIED ATRIAL FIBRILLATION Status: Acute Priority : High (3) Type II diabetes mellitus SNOMED Code(s): 94831909 ICD Code: E11.9 - TYPE 2 DIABETES MELLITUS WITHOUT COMPLICATIONS Status: Acute Priority: Medium Qualifiers: Diabetes mellitus correction insulin use: with correction use Diabetes mellitus complication status: with kidney complications Diabetes mellitus complication detail: with chronic kidney disease Chronic kidney disease stage : stage 3 (moderate) Qualified Code(s): E11.22 - Type 2 diabetes mellitus with diabetic chronic kidney disease; N18.3 - Chronic kidney disease, stage 3 ( moderate); Z79.4 - residential (current) use of insulin (4) UTI (urinary tract infection) SNOMED Code(s): 22923592 ICD Code: N39.0 - URINARY TRACT INFECTION, SITE NOT SPECIFIED Status: Acute Qualifiers: Urinary tract infection type: acute cystitis Hematuria presence: without hematuria Qualified Code(s): N30.00 - Acute cystitis without hematuria - Patient Summary/Data Complications: none Consults: Consultations 04/25/18 19:52 PT Evaluation and Treatment [CONS] Routine Hospital Course: Patient has done well during admission. Does still weaker than her norm but able to ambulate 25-30 feet at a time with her walker which she states is about what she needs to do at home. She is quite tearful today, wanting to go home. Patient was admitted with leukocytosis, elevated CRP with concern of UTI. Urine culture has since show contamination with collection. She was found to have new onset atrial fib and was started on Coumadin. INR is not yet therapeutic but patient does not want to stay in the hospital until it is. She will continue on Coumadin at home, return on for follow up lab. Creatinine was elevated on admission, has improved with IV fluids, today down to 1.8. WBC has improved, normal today. CRP was high at 30.4, today 0.8. Appropriate for discharge home with home health cares today - Patient Instructions Diet: Diabetic Diet Activity: As Tolerated - Discharge Plan *PRESCRIPTION DRUG MONITORING PROGRAM REVIEWED*: Not Applicable *COPY OF PRESCRIPTION DRUG MONITORING REPORT IN PATIENT NIXON: Not Applicable Prescriptions/Med Rec: Cefuroxime Axetil [Ceftin] 250 mg PO BID #14 tablet Nystatin [Nystatin Crm] 1 gm TOP QID PRN #1 tube PRN Reason: Itching Warfarin [Coumadin] 7.5 mg PO DAILY #30 tab Home Medications: Home Meds Acetaminophen [Tylenol Arthritis Pain] 650 mg PO Q8HR PRN 12/02/13 [History] Aspirin 81 mg PO DAILY 12/02/13 [History] Atenolol 100 mg PO DAILY 12/02/13 [History] Calc/D3/Mag/Zn/[employer] Operator/Jeremy/[place] [Calcium 600 MG Plus Vit D] 2 each PO DAILY [History] Citalopram Hydrobromide [Citalopram HBr] 20 mg PO DAILY 12/02/13 [History] Cyanocobalamin (Vitamin B12) [Vitamin B12] 2,000 mcg IM ASDIRECTED 12/02/13 [ History] Furosemide 80 mg PO DAILY 12/02/13 [History] Glimepiride 2 mg PO DAILY 12/02/13 [History] Iron 3 tab PO DAILY 12/02/13 [History] Lisinopril [Prinivil] 20 mg PO DAILY 12/02/13 [History] Potassium 2 tab PO DAILY 12/02/13 [History] Cholecalciferol (Vitamin D3) [Vitamin D3] 6,000 unit PO DAILY 04/25/18 [History] Magnesium Oxide/Mag AA Chelate [Magnesium] 300 mg PO DAILY 04/25/18 [History] Cefuroxime Axetil [Ceftin] 250 mg PO BID #14 tablet 04/29/18 [Rx] Insulin Glargine,Hum.Rec.Anlog [Basaglar Kwikpen U-100] 30 unit SQ BID #0 [Rx] Nystatin [Nystatin Crm] 1 gm TOP QID PRN #1 tube 04/29/18 [Rx] Warfarin [Coumadin] 7.5 mg PO DAILY #30 tab 04/29/18 [Rx] Patient Handouts: Urinary Tract Infection, Adult, Atrial Fibrillation Forms: ED Department Discharge Referrals: Waleska Rock PA-C [Family Provider] - (Follow up with Waleska Rock on with lab prior) - Discharge Summary/Plan Comment DC Time >30 min.: No Discharge Summary/Plan Comment: Discharge home Continue Coumadin at 7.5 mg daily Ceftin 250 mg BID. Reduced Levemir to 30 units BID at this time due to low blood sugars in the hospital, may need to reevaluate this on once resumes her normal eating patterns at home discharge home on home health. Nursing to continue to monitor edema, cardiac status due to new onset atrial fib and tolerance of new meds. She will need INR rechecks but will do the next one with her follow up hospital visit and determine doses/frequency of INR checks at that time. Monitor blood pressure, was low at 90/50 at times at the hospital. Physical therapy to continue to evaluate strength, ability to transfer. Is home bound as unable to drive at this time. Dr. Mata will oversee her care through home health. - General Info Date of Service: 04/29/18 Admission Dx/Problem (Free Text: New Onset Atrial Fib Weakness UTI Functional Status: Reports: Pain Controlled, Tolerating Diet, Ambulating, Urinating - Review of Systems General: Reports: Weakness, Fatigue. Denies: Fever HEENT: Reports: No Symptoms Pulmonary: Denies: Shortness of Breath, Cough Cardiovascular: Reports: Edema. Denies: Chest Pain, Lightheadedness Gastrointestinal: Denies: Abdominal Pain, Nausea, Vomiting Genitourinary: Reports: No Symptoms Musculoskeletal: Reports: No Symptoms Skin: Reports: No Symptoms Neurological: Reports: No Symptoms Psychiatric: Reports: Anxiety - Patient Data Vitals - Most Recent: Last Vital Signs Temp 98.4 F 04/29/18 08:00 Pulse 86 04/29/18 08:00 Resp 20 04/29/18 08:00 BP 121/61 04/29/18 08:00 Pulse Ox 97 04/29/18 08:00 Weight - Most Recent: 297 lb 4.8 oz Lab Results - Last 24 hrs: Laboratory Results - last 24 hr 04/29/18 04/29/18 04/29/18 Range/Units 07:06 07:06 07:06 WBC 9.0 (5.0-10.0) 10^3/uL RBC 3.18 L (4.00-5.50) 10^6/uL Hgb 8.7 L (12.0-16.0) g/dL Hct 29.5 L (37.0-47.0) % MCV 92.8 (82.0-94.0) fL MCH 27.4 (27.0-32.0) pg MCHC 29.5 L (33.0-38.0) g/dL RDW Coeff of Chris 17.0 H (11.0-15.0) % Plt Count 572 H (150-400) 10^3/uL Neut % (Auto) 65.4 (35-85) % Lymph % (Auto) 26.1 (10-55) % [place] % (Auto) 5.0 (0-16) % Eos % (Auto) 3.4 (0-5) % Baso % (Auto) 0.1 (0-3) % Neut # (Auto) 5.85 (1.80-7.00) 10^3/uL Lymph # (Auto) 2.34 (1.00-4.80) 10^3/uL [place] # (Auto) 0.45 (0.00-0.80) 10^3/uL Eos # (Auto) 0.30 (0.00-0.45) 10^3/uL Baso # (Auto) 0.01 10^3/uL PT 12.2 (9.7-12.3) SEC INR 1.19 H (0.92-1.18) Sodium 145 (136-145) mEq/L Potassium 4.3 (3.5-5.0) mEq/L Chloride 112 H (98-106) mEq/L Carbon Dioxide 23 (21-32) mmol/L BUN 21 H (7-18) mg/dL Creatinine 1.3 H (0.6-1.0) mg/dL Est Cr Clr Drug Dosing 37.16 mL/min Estimated GFR (MDRD) 40 L (>=60) mL/min Glucose 70 L (75-99) mg/dL Calcium 8.4 (8.4-10.1) mg/dL C-Reactive Protein 0.8 (0.2-0.8) mg/dL Med Orders - Current: Current Medications Discontinued Medications Acetaminophen (Tylenol) 650 mg PO Q8H PRN PRN Reason: Pain Last Admin: 04/29/18 03:59 Dose: 650 mg Aspirin (Aspirin) 81 mg PO DAILY [facility] Last Admin: 04/29/18 07:50 Dose: 81 mg Atenolol (Tenormin) 100 mg PO DAILY [facility] Last Admin: 04/29/18 07:57 Dose: 100 mg Ceftriaxone Sodium (Rocephin) 1 gm IVPUSH Q24H [facility] Last Admin: 04/28/18 20:07 Dose: 1 gm Citalopram Hydrobromide (Celexa) 20 mg PO DAILY [facility] Last Admin: 04/29/18 07:50 Dose: 20 mg Potassium Chloride/Sodium Chloride (Normal Saline With 20 Meq Kcl) 1,000 mls @ 75 mls/hr IV ASDIRECTED [facility] Last Admin: 04/25/18 19:03 Dose: 75 mls/hr Sodium Chloride (Normal Saline) 500 mls @ 500 mls/hr IV ONETIME ONE Stop: 04/25/18 20:59 Last Admin: 04/25/18 20:36 Dose: 500 mls/hr Sodium Chloride (Normal Saline) 1,000 mls @ 75 mls/hr IV ASDIRECTED [facility] Last Admin: 04/28/18 03:05 Dose: 75 mls/hr Insulin Aspart (Novolog) 0 unit SUBCUT WITHMEALSANDBED [facility]; Protocol Last Admin: 04/29/18 08:08 Dose: Not Given Insulin Detemir (Levemir) 36 unit SUBCUT BID [facility] Last Admin: 04/28/18 08:30 Dose: 36 unit Insulin Detemir (Levemir) 18 unit SUBCUT ONETIME ONE Stop: 04/26/18 09:44 Last Admin: 04/26/18 10:24 Dose: 18 units Insulin Detemir (Levemir) 30 unit SUBCUT BID [facility] Last Admin: 04/29/18 08:07 Dose: 30 unit Lisinopril (Prinivil) 20 mg PO DAILY [facility] Last Admin: 04/29/18 07:58 Dose: 20 mg Loperamide HCl (Imodium) 2 mg PO Q6H PRN PRN Reason: Diarrhea Last Admin: 04/28/18 12:24 Dose: 2 mg Magnesium Hydroxide (Milk Of Magnesia) 30 ml PO Q12H PRN PRN Reason: Constipation Nystatin (Nystatin Crm) 1 gm TOP QID PRN PRN Reason: Itching Last Admin: 04/28/18 21:34 Dose: 1 applic Temazepam (Restoril) 15 mg PO BEDTIME PRN PRN Reason: Sleep Warfarin Sodium (Coumadin) 5 mg PO DAILY@1200 [facility] Last Admin: 04/27/18 12:07 Dose: 5 mg Warfarin Sodium (Coumadin) 10 mg PO DAILY [facility] Stop: 04/29/18 23:59 Last Admin: 04/29/18 08:06 Dose: 10 mg - Exam General: Reports: Alert, Oriented HEENT: Reports: Mucous Membr. Moist/[place] Neck: Reports: Supple Lungs: Reports: Clear to Auscultation, Normal Respiratory Effort Cardiovascular: Reports: Irregular Rhythm GI/Abdominal Exam: Normal Bowel Sounds, Soft, Non-Tender Extremities: Normal Inspection, Pedal Edema (1+) Skin: Reports: Warm, Dry Neurological: Reports: No New Focal Deficit
== END 2018-04-29 11:20 | disposition home health service (06) | DRG 700 ==
LOC: CC.ED 17:07 → CC.MS 19:01 → UNDOADMIN 19:14
PROVIDERS: ADMIT Nurse Practitioner Family; ATTEND Family Medicine
DX: N30.00 Acute cystitis without hematuria (principal); N28.9 Disorder of kidney and ureter, unspecified; I48.91 Unspecified atrial fibrillation; N18.3 Chronic kidney disease, stage 3 (moderate); E11.22 Type 2 diabetes mellitus with diabetic chronic kidney disease; I12.9 Hypertensive chronic kidney disease with stage 1 through stage 4 chronic kidney disease, or unspecified chronic kidney disease; E87.5 Hyperkalemia; I50.9 Heart failure, unspecified; E78.5 Hyperlipidemia, unspecified; F32.9 Major depressive disorder, single episode, unspecified; M10.9 Gout, unspecified; E66.01 Morbid (severe) obesity due to excess calories; M19.90 Unspecified osteoarthritis, unspecified site; M81.0 Age-related osteoporosis without current pathological fracture; E55.9 Vitamin D deficiency, unspecified; D64.9 Anemia, unspecified; Z85.828 Personal history of other malignant neoplasm of skin; Z88.6 Allergy status to analgesic agent; Z79.82 Long term (current) use of aspirin; Z79.899 Other long term (current) drug therapy; Z79.4 Long term (current) use of insulin; Z90.49 Acquired absence of other specified parts of digestive tract; Z87.442 Personal history of urinary calculi; R06.02 Shortness of breath; R60.9 Edema, unspecified; R41.0 Disorientation, unspecified; R53.81 Other malaise; I95.9 Hypotension, unspecified; R53.1 Weakness
CPT/HCPCS: 36415; 71046; 80048; 80053; 81001; 82962; 84484; 85025; 85610; 86140; 87086; 93005; 93010; 93306; 96374; 97161-GP; 99285; A9270-GY; J0696; J1815-GY; J3480; J7030; J7040

== ENCOUNTER 2019-05-30 10:55 | Inpatient (IN) | payer MEDICARE, OTHER ==
[2019-05-30 11:24] LABS: CHLORIDE,CL 103 mEq/L (98-106); SODIUM,NA 140 mEq/L (136-145)
[2019-05-30] MEDS ORDERED: Ondansetron 4 MG/2 ML SDV IV PRN (12:47)
[2019-05-30] MEDS ORDERED: Ondansetron 4 MG Tab.DIS PO PRN (12:47)
[2019-05-30] MEDS ORDERED: Pantoprazole 40 MG Vial IVPUSH SCH (13:00)
[2019-05-30] MEDS ORDERED: Lactated Ringers 1,000 ML IV SCH (13:00)
[2019-05-30] MEDS: Sodium Chloride 0.9% 1,000 ML IV SCH (20:00)
[2019-05-31] MEDS: Pantoprazole 40 MG Vial IVPUSH SCH ×2 (08:02→21:00)
[2019-05-31] MEDS ORDERED: Iopamidol 755 Mg/ML 200 ML Bottle IV ONE (17:11)
--- NOTE | 2019-05-31 17:14 | PCM.PN ---
- General Info Date of Service: 05/31/19 Functional Status: Denies: Pain Controlled, Tolerating Diet Pain Score: 4 - Review of Systems General: Reports: No Symptoms. Denies: Fever HEENT: Reports: No Symptoms Pulmonary: Reports: No Symptoms Cardiovascular: Reports: No Symptoms Gastrointestinal: Reports: Abdominal Pain, Flatus (is passing gas), Nausea Genitourinary: Reports: No Symptoms Musculoskeletal: Reports: No Symptoms Skin: Reports: No Symptoms Neurological: Reports: No Symptoms Psychiatric: Reports: No Symptoms - Patient Data Vitals - Most Recent: Last Vital Signs Temp 98.2 F 05/31/19 15:57 Pulse 87 05/31/19 15:57 Resp 18 05/31/19 15:57 BP 105/52 L 05/31/19 15:57 Pulse Ox 97 05/31/19 15:57 Weight - Most Recent: 276 lb I&O - Last 24 Hours: Intake & Output 05/31/19 05/31/19 05/31/19 06:59 14:59 22:59 Output Total 25 Balance -25 Lab Results Last 24 Hours: Laboratory Results - last 24 hr 05/30/19 05/31/19 05/31/19 Range/Units 21:23 06:50 06:50 WBC 7.3 (5.0-10.0) 10^3/uL RBC 3.67 L (4.00-5.50) 10^6/uL Hgb 9.4 L (12.0-16.0) g/dL Hct 31.6 L (37.0-47.0) % MCV 86.1 (82.0-94.0) fL MCH 25.6 L (27.0-32.0) pg MCHC 29.7 L (33.0-38.0) g/dL RDW Coeff of Chris 17.2 H (11.0-15.0) % Plt Count 526 H (150-400) 10^3/uL Neut % (Auto) 65.4 (35-85) % Lymph % (Auto) 23.7 (10-55) % [place] % (Auto) 9.3 (0-16) % Eos % (Auto) 1.5 (0-5) % Baso % (Auto) 0.1 (0-3) % Neut # (Auto) 4.78 (1.80-7.00) 10^3/uL Lymph # (Auto) 1.73 (1.00-4.80) 10^3/uL [place] # (Auto) 0.68 (0.00-0.80) 10^3/uL Eos # (Auto) 0.11 (0.00-0.45) 10^3/uL Baso # (Auto) 0.01 10^3/uL PT (9.7-12.3) SEC INR (0.92-1.18) APTT 36.6 H (23.2-32.3) SEC Sodium (136-145) mEq/L Potassium (3.5-5.0) mEq/L Chloride (98-106) mEq/L Carbon Dioxide (21-32) mmol/L BUN (7-18) mg/dL Creatinine (0.6-1.0) mg/dL Est Cr Clr Drug Dosing mL/min Estimated GFR (MDRD) (>=60) mL/min Glucose (75-99) mg/dL POC Glucose 114 H (75-105) mg/dl Calcium (8.4-10.1) mg/dL C-Reactive Protein (0.2-0.8) mg/dL 05/31/19 05/31/19 Range/Units 06:50 07:00 WBC (5.0-10.0) 10^3/uL RBC (4.00-5.50) 10^6/uL Hgb (12.0-16.0) g/dL Hct (37.0-47.0) % MCV (82.0-94.0) fL MCH (27.0-32.0) pg MCHC (33.0-38.0) g/dL RDW Coeff of Chris (11.0-15.0) % Plt Count (150-400) 10^3/uL Neut % (Auto) (35-85) % Lymph % (Auto) (10-55) % [place] % (Auto) (0-16) % Eos % (Auto) (0-5) % Baso % (Auto) (0-3) % Neut # (Auto) (1.80-7.00) 10^3/uL Lymph # (Auto) (1.00-4.80) 10^3/uL [place] # (Auto) (0.00-0.80) 10^3/uL Eos # (Auto) (0.00-0.45) 10^3/uL Baso # (Auto) 10^3/uL PT 18.1 H (9.7-12.3) SEC INR 1.82 H (0.92-1.18) APTT (23.2-32.3) SEC Sodium 142 (136-145) mEq/L Potassium 3.9 (3.5-5.0) mEq/L Chloride 105 (98-106) mEq/L Carbon Dioxide 28 (21-32) mmol/L BUN 31 H (7-18) mg/dL Creatinine 1.5 H (0.6-1.0) mg/dL Est Cr Clr Drug Dosing 31.27 mL/min Estimated GFR (MDRD) 34 L (>=60) mL/min Glucose 120 H D (75-99) mg/dL POC Glucose (75-105) mg/dl Calcium 8.5 (8.4-10.1) mg/dL C-Reactive Protein 4.3 H (0.2-0.8) mg/dL Med Orders - Current: Current Medications Sodium Chloride (Normal Saline) 1,000 mls @ 1 mls/hr IV ASDIRECTED [facility] Last Admin: 05/30/19 20:00 Dose: 1 mls/hr Ondansetron HCl (Zofran Odt) 4 mg PO Q4H PRN PRN Reason: nausea, able to take PO Ondansetron HCl (Zofran) 4 mg IV Q4H PRN PRN Reason: Nausea/Vomiting Last Admin: 05/30/19 13:36 Dose: 4 mg Pantoprazole Sodium (Protonix Iv) 40 mg IVPUSH 799,1999 [facility] Last Admin: 05/31/19 08:02 Dose: 40 mg Discontinued Medications Lactated Ringer's (Ringers, Lactated) 1,000 mls @ 50 mls/hr IV ASDIRECTED [facility] Last Admin: 05/30/19 13:39 Dose: 50 mls/hr Morphine Sulfate (Morphine) 4 mg IVPUSH ONETIME ONE Stop: 05/31/19 16:36 Pantoprazole Sodium (Protonix Iv) 40 mg IVPUSH Q12H [facility] Last Admin: 05/30/19 13:32 Dose: 40 mg - Exam General: Alert, Oriented, Cooperative Lungs: Clear to Auscultation, Normal Respiratory Effort Cardiovascular: Regular Rate, Regular Rhythm GI/Abdominal Exam: Distended, Tender (RUQ. LUQ.), Other (Obese) Back Exam: Normal Inspection, Full Range of Motion Extremities: Normal Inspection, Pedal Edema (+1 BLE) Peripheral Pulses: 2+: Radial (L), Radial (R), Posterior Tibial (L), Posterior Tibial (R) Skin: Warm, Dry, Intact Neurological: No New Focal Deficit Psy/Mental Status: Alert, Normal Affect, Normal Mood - Problem List Review Problem List Initiated/Reviewed/Updated: Yes - My Orders Last 24 Hours: My Active Orders 05/31/19 16:27 Abdomen Pelvis w Cont [CT] Stat - Plan Plan:: This patient is a 74 year old female that was admitted yesterday. Patient was admitted for small bowel obstruction. The patient has an NG tube and has had about 400 ml out today dark in brown color. The patient reports that her abdomen does have pain. She reports its mildly improved since yesterday, as she does not feel has full. However, she continues to have pain and nausea. Patient is sitting up in chair and will not lay on the bed due to pain in her abdomen, making abdominal exam difficult, especially with obese abdomen. Patent labs yesterday were hgb 10.1, INR 1.82, CR 1.6, BUN 31, CRP 7.9. Today labs are hgb 9.4, CR 1.5, BUN 31, CRP 4.3. I went to review patient radiology reports. There was an abd xray done yesterday that showed dilated gas filled loops of the bowel. A repeat xray was performed today as well, I reviewed this, it shows dilated gas filled lops of bowel again. I have ordered a CT of abd/pelvis of this patient. I have also discontinued LR for this patient as patient has hx of chronically elevated CR levels. Today, her CR is 1.5, making her capable to get ct with contrast. Discussed risks with patient, she understands and agrees to CT. I will await CT results then consult with a general surgeon about the patient.
--- NOTE | 2019-05-31 23:16 | PCM.SN ---
- Free Text/Narrative Note: 05/31/[address] results of patient abd/pelvis with contrast. The radiologist and I spoke. He reports that he read previous xray and said there are dilated loops of small bowel that were consistent with enteritis on 05/31/19. He reports CT shows enteritis. He reports there is NO small bowel obstruction. No ischemia. I went to see the patient again. Patient reports she has no pain other than the discomfort of the NG tube. She said only her back and hips hurt chronically, not her abdomen. She reports she does not feel nauseated. Patient was given a glass of water, she drank without issue. Naima ABRAHAM removed NG tube now without complication. We will give this a trial and see how she does without an NG tube. Will start on Clear liquid diet. Plan will be to have her in wheelchair tomorrow moving herself throughout the halls to see how she does. Also, to advance her diet as tolerated. Plan is hopefully to be able to discharge her by Sunday.
[2019-05-31] MEDS: Sodium Chloride 0.9% 1,000 ML IV SCH (23:59)
[2019-06-01] MEDS: Acetaminophen 325 MG Tab PO PRN ×2 (00:07→10:47)
[2019-06-01] MEDS: Pantoprazole 40 MG Vial IVPUSH SCH ×2 (07:51→20:07)
[2019-06-01] MEDS ORDERED: Non-Formulary Medication 1 Each (Acetaminophen [Tylenol Arthritis Pain] 650 MG) PO PRN (07:52)
[2019-06-01] MEDS ORDERED: Nystatin Crm 30 GM Tube TOP PRN (07:52)
[2019-06-01] MEDS: Cholecalciferol (Vitamin D3) 25 MCG Tab PO SCH (08:29)
[2019-06-01] MEDS: Atenolol 50 MG Tab PO SCH (08:29)
[2019-06-01] MEDS: Citalopram 10 MG Tab PO SCH (08:29)
[2019-06-01] MEDS: Calcium Carbonate/Vitamin D3 1250 MG-200 Unit Tab PO SCH ×2 (08:29→20:07)
[2019-06-01] MEDS: Furosemide 40 MG Tab PO SCH (08:29)
[2019-06-01] MEDS: Insulin Glargine,Human Rec. Analog 100 Units/ML 3 ML Pen SUBCUT SCH ×2 (08:30→20:08)
[2019-06-01] MEDS: Potassium Gluconate (99 MG) 2 MEQ Tab PO SCH (10:48)
[2019-06-01] MEDS: Ferrous Sulfate 324 MG Tab.EC PO SCH (10:48)
[2019-06-01] MEDS ORDERED: Warfarin 2.5 MG Tab PO SCH (12:00)
--- NOTE | 2019-06-01 12:29 | PCM.PN ---
- General Info Date of Service: 06/01/19 Functional Status: Reports: Pain Controlled, Tolerating Diet, Other (wheelchair in the hallways without issue) - Review of Systems General: Reports: No Symptoms HEENT: Reports: No Symptoms Pulmonary: Reports: No Symptoms Cardiovascular: Reports: No Symptoms Gastrointestinal: Reports: Diarrhea (x1 this morning, but reports thats chronic. ). Denies: Abdominal Pain, Nausea, Vomiting Genitourinary: Reports: No Symptoms Musculoskeletal: Reports: Back Pain (chronic no change) Skin: Reports: No Symptoms Neurological: Reports: No Symptoms Psychiatric: Reports: No Symptoms - Patient Data Vitals - Most Recent: Last Vital Signs Temp 97.9 F 06/01/19 12:00 Pulse 82 06/01/19 12:00 Resp 18 06/01/19 12:00 BP 112/66 06/01/19 12:00 Pulse Ox 96 06/01/19 12:00 Weight - Most Recent: 276 lb I&O - Last 24 Hours: Intake & Output 05/31/19 06/01/19 06/01/19 23:59 06:59 14:59 Intake Total Output Total Balance Lab Results Last 24 Hours: Laboratory Results - last 24 hr 05/31/19 05/31/19 06/01/19 Range/Units 18:13 19:37 06:55 WBC 8.1 (5.0-10.0) 10^3/uL RBC 3.81 L (4.00-5.50) 10^6/uL Hgb 9.8 L (12.0-16.0) g/dL Hct 33.4 L (37.0-47.0) % MCV 87.7 (82.0-94.0) fL MCH 25.7 L (27.0-32.0) pg MCHC 29.3 L (33.0-38.0) g/dL RDW Coeff of Chris 17.2 H (11.0-15.0) % Plt Count 525 H (150-400) 10^3/uL Neut % (Auto) 65.4 (35-85) % Lymph % (Auto) 25.6 (10-55) % [place] % (Auto) 6.8 (0-16) % Eos % (Auto) 2.1 (0-5) % Baso % (Auto) 0.1 (0-3) % Neut # (Auto) 5.32 (1.80-7.00) 10^3/uL Lymph # (Auto) 2.08 (1.00-4.80) 10^3/uL [place] # (Auto) 0.55 (0.00-0.80) 10^3/uL Eos # (Auto) 0.17 (0.00-0.45) 10^3/uL Baso # (Auto) 0.01 10^3/uL Sodium (136-145) mEq/L Potassium (3.5-5.0) mEq/L Chloride (98-106) mEq/L Carbon Dioxide (21-32) mmol/L BUN (7-18) mg/dL Creatinine (0.6-1.0) mg/dL Est Cr Clr Drug Dosing mL/min Estimated GFR (MDRD) (>=60) mL/min Glucose (75-99) mg/dL POC Glucose 90 84 (75-105) mg/dl Calcium (8.4-10.1) mg/dL C-Reactive Protein (0.2-0.8) mg/dL 06/01/19 06/01/19 Range/Units 06:55 12:22 WBC (5.0-10.0) 10^3/uL RBC (4.00-5.50) 10^6/uL Hgb (12.0-16.0) g/dL Hct (37.0-47.0) % MCV (82.0-94.0) fL MCH (27.0-32.0) pg MCHC (33.0-38.0) g/dL RDW Coeff of Chris (11.0-15.0) % Plt Count (150-400) 10^3/uL Neut % (Auto) (35-85) % Lymph % (Auto) (10-55) % [place] % (Auto) (0-16) % Eos % (Auto) (0-5) % Baso % (Auto) (0-3) % Neut # (Auto) (1.80-7.00) 10^3/uL Lymph # (Auto) (1.00-4.80) 10^3/uL [place] # (Auto) (0.00-0.80) 10^3/uL Eos # (Auto) (0.00-0.45) 10^3/uL Baso # (Auto) 10^3/uL Sodium 143 (136-145) mEq/L Potassium 3.6 (3.5-5.0) mEq/L Chloride 106 (98-106) mEq/L Carbon Dioxide 29 (21-32) mmol/L BUN 26 H (7-18) mg/dL Creatinine 1.4 H (0.6-1.0) mg/dL Est Cr Clr Drug Dosing 33.50 mL/min Estimated GFR (MDRD) 37 L (>=60) mL/min Glucose 101 H (75-99) mg/dL POC Glucose 142 H (75-105) mg/dl Calcium 8.2 L (8.4-10.1) mg/dL C-Reactive Protein 3.1 H (0.2-0.8) mg/dL Med Orders - Current: Current Medications Acetaminophen (Tylenol) 650 mg PO Q4H PRN PRN Reason: Pain Last Admin: 06/01/19 10:47 Dose: 650 mg Atenolol (Tenormin) 50 mg PO DAILY [facility] Last Admin: 06/01/19 08:29 Dose: 50 mg Calcium Carbonate (Calcium Carbonate/Vitamin D 1250 Mg-200 Unit) 1 tab PO BID [facility] Last Admin: 06/01/19 08:29 Dose: 1 tab Cholecalciferol (Vitamin D3) 125 mcg PO DAILY [facility] Last Admin: 06/01/19 08:29 Dose: 125 mcg Citalopram Hydrobromide (Celexa) 20 mg PO DAILY [facility] Last Admin: 06/01/19 08:29 Dose: 20 mg Cyanocobalamin (Vitamin B12) 2,000 mcg IM Q30D [facility] Ferrous Sulfate (Ferrous Sulfate) 324 mg PO DAILY [facility] Last Admin: 06/01/19 10:48 Dose: 324 mg Furosemide (Lasix) 40 mg PO DAILY [facility] Last Admin: 06/01/19 08:29 Dose: 40 mg Glimepiride (Glimepiride) 2 mg PO DAILY [facility] Insulin Glargine (Lantus Solostar) 25 units SUBCUT BID [facility] Last Admin: 06/01/19 08:30 Dose: 25 units Levothyroxine Sodium (Synthroid) 25 mcg PO ACBREAKFAST [facility] Levothyroxine Sodium (Synthroid) 200 mcg PO ACBREAKFAST [facility] Magnesium Oxide (Magnesium Oxide) 750 mg PO DAILY [facility] Last Admin: 06/01/19 08:28 Dose: 750 mg Nystatin (Nystatin Crm) 0 gm TOP QID PRN PRN Reason: Itching Ondansetron HCl (Zofran Odt) 4 mg PO Q4H PRN PRN Reason: nausea, able to take PO Ondansetron HCl (Zofran) 4 mg IV Q4H PRN PRN Reason: Nausea/Vomiting Last Admin: 05/30/19 13:36 Dose: 4 mg Pantoprazole Sodium (Protonix Iv) 40 mg IVPUSH 0800,1999 [facility] Last Admin: 06/01/19 07:51 Dose: 40 mg Potassium (Potassium Gluconate) 4 meq PO DAILY [facility] Last Admin: 06/01/19 10:48 Dose: 4 meq Warfarin Sodium (Coumadin) 7.5 mg PO Q7D [facility] Warfarin Sodium (Coumadin) 3.75 mg PO [id number] [facility] Last Admin: 06/01/19 11:01 Dose: 3.75 mg Discontinued Medications Lactated Ringer's (Ringers, Lactated) 1,000 mls @ 50 mls/hr IV ASDIRECTED [facility] Last Admin: 05/30/19 13:39 Dose: 50 mls/hr Sodium Chloride (Normal Saline) 1,000 mls @ 1 mls/hr IV ASDIRECTED [facility] Last Admin: 05/31/19 23:59 Dose: 1 mls/hr Iopamidol (Isovue-370 (76%)) 160 ml IV ONETIME ONE Stop: 05/31/19 17:12 Last Admin: 05/31/19 18:00 Dose: 160 ml Morphine Sulfate (Morphine) 4 mg IVPUSH ONETIME ONE Stop: 05/31/19 16:36 Last Admin: 05/31/19 18:03 Dose: 4 mg Non-Formulary Medication (Acetaminophen [Tylenol Arthritis Pain]) 650 mg PO Q8HR PRN PRN Reason: Pain Pantoprazole Sodium (Protonix Iv) 40 mg IVPUSH Q12H [facility] Last Admin: 05/30/19 13:32 Dose: 40 mg - Exam General: Alert, Oriented, Cooperative, No Acute Distress Lungs: Clear to Auscultation, Normal Respiratory Effort Cardiovascular: Regular Rate, Regular Rhythm GI/Abdominal Exam: Normal Bowel Sounds, Soft, Non-Tender, No Distention Back Exam: Normal Inspection Extremities: Normal Inspection Skin: Warm, Dry, Intact Neurological: No New Focal Deficit Psy/Mental Status: Alert, Normal Affect, Normal Mood - Problem List Review Problem List Initiated/Reviewed/Updated: Yes - My Orders Last 24 Hours: My Active Orders 05/31/19 16:27 Abdomen Pelvis w Cont [CT] Stat 05/31/19 23:55 Acetaminophen [Tylenol] 650 mg PO Q4H PRN 06/01/19 07:52 Nystatin [Nystatin Crm] 0 gm TOP QID PRN 06/01/19 08:00 Atenolol [Tenormin] 50 mg PO DAILY Cholecalciferol (Vitamin D3) [Vitamin D3] 125 mcg PO DAILY Citalopram [Celexa] 20 mg PO DAILY Furosemide [Lasix] 40 mg PO DAILY Insulin Glarg,Human.Rec.Analog [LantUS Solostar] 25 units SUBCUT BID Magnesium Oxide 750 mg PO DAILY 06/01/19 08:15 Calcium Carbonate/Vitamin D3 [Calcium Carbonate/Vitamin D 1250 MG-200 Unit] 1 tab PO BID 06/01/19 09:15 Ferrous Sulfate 324 mg PO DAILY 06/01/19 09:30 Potassium Gluconate 4 meq PO DAILY 06/01/19 12:00 Warfarin [Coumadin] 3.75 mg PO [id number] 06/01/19 Breakfast 2 Gram Sodium Diet [DIET] 06/02/19 07:00 Levothyroxine [Synthroid] 200 mcg PO ACBREAKFAST Levothyroxine [Synthroid] 25 mcg PO ACBREAKFAST 06/02/19 08:00 Glimepiride 2 mg PO DAILY 06/06/19 12:00 Warfarin [Coumadin] 7.5 mg PO Q7D 06/13/19 08:00 Cyanocobalamin (Vitamin B12) [Vitamin B12] 2,000 mcg IM Q30D - Plan Plan:: 05/31/19 [id number] This patient is a 74 year old female that was admitted yesterday. Patient was admitted for small bowel obstruction. The patient has an NG tube and has had about 400 ml out today dark in brown color. The patient reports that her abdomen does have pain. She reports its mildly improved since yesterday, as she does not feel has full. However, she continues to have pain and nausea. Patient is sitting up in chair and will not lay on the bed due to pain in her abdomen, making abdominal exam difficult, especially with obese abdomen. Patent labs yesterday were hgb 10.1, INR 1.82, CR 1.6, BUN 31, CRP 7.9. Today labs are hgb 9.4, CR 1.5, BUN 31, CRP 4.3. I went to review patient radiology reports. There was an abd xray done yesterday that showed dilated gas filled loops of the bowel. A repeat xray was performed today as well, I reviewed this, it shows dilated gas filled lops of bowel again. I have ordered a CT of abd/pelvis of this patient. I have also discontinued LR for this patient as patient has hx of chronically elevated CR levels. Today, her CR is 1.5, making her capable to get ct with contrast. Discussed risks with patient, she understands and agrees to CT. I will await CT results then consult with a general surgeon about the patient. 06/01/19 0900 RN told me this morning that patient had drank several glasses of water without any issues. The patient reported to RN that she was ready to try and eat, so I changed her diet to solid diet. The patient ate breakfast without any difficulty. She ate entire tray with no abd pain, n, v. No fever. The patient reports that she is feeling great and getting around the halls without difficulty. Labs today are wbc 8.1, hgb 9.8, CR 1.4, BUN 26, CRP 3.1. Patient is doing well without NG. The plan will be to possibly discharge the patient home tomorrow.
[2019-06-02] MEDS: Acetaminophen 325 MG Tab PO PRN (06:36)
[2019-06-02] MEDS ORDERED: Levothyroxine 100 MCG Tab PO SCH (07:00)
[2019-06-02] MEDS ORDERED: Levothyroxine 50 MCG Tab PO SCH (07:00)
[2019-06-02] MEDS: Pantoprazole 40 MG Vial IVPUSH SCH (08:18)
[2019-06-02] MEDS: Potassium Gluconate (99 MG) 2 MEQ Tab PO SCH (08:19)
[2019-06-02] MEDS: Calcium Carbonate/Vitamin D3 1250 MG-200 Unit Tab PO SCH (08:19)
[2019-06-02] MEDS: Cholecalciferol (Vitamin D3) 25 MCG Tab PO SCH (08:19)
[2019-06-02] MEDS: Ferrous Sulfate 324 MG Tab.EC PO SCH (08:21)
[2019-06-02] MEDS: Furosemide 40 MG Tab PO SCH (08:21)
[2019-06-02] MEDS: Atenolol 50 MG Tab PO SCH (08:21)
[2019-06-02] MEDS: Citalopram 10 MG Tab PO SCH (08:22)
[2019-06-02 08:25] VITALS: BP 108/52; PULSE 77
[2019-06-02] MEDS: Insulin Glargine,Human Rec. Analog 100 Units/ML 3 ML Pen SUBCUT SCH (08:47)
--- NOTE | 2019-06-02 16:22 | PCM.DCSUM1 ---
Discharge Summary - Hospital Course Free Text/Narrative:: Chely is a 74 year old who presented to see Waleska Rock for lower quadrant abdominal pain. [place] hernia was worsening and causing more discomfort. Unable to tolerate oral intake due to vomiting. Experiencing chills, weakness and feeling lightheaded. Labs done in clinic, showed normal WBC at 7.5, electrolytes normal. Creatinine 1.6. CRP elevated at 7.6. Abdominal xrays concerning for small bowel obstruction. ADmitted and started on IV fluids. NG placed. Diagnosis: Stroke: No Modified Turner Scale: No Symptoms at All Modified Mary Ellen Scale Score: 0 - Discharge Data Discharge Date: 06/02/19 Discharge Disposition: Home, Self-Care 01 Condition: Good - Referral to Home Health Primary Care Physician: Waleska Rock PA-C - Patient Summary/Data Complications: none Hospital Course: Patient has improved over the weekend. On sunday, was expressing more pain, unable to lie in bed due to discomfort. Creatinine had improved to 1.[address] scan was done per Joseph Brooks. No bowel obstruction noted. Concerns noted for enteritis. Were able to clamp NG and start patient on clear liquids. Tolerated well so diet slowly advanced. Blood sugars have been stable. Tolerated full meal this am. Has had frequent loose diarrhea stools. WBC remained stable at 1.6. Creatinine now 1.4. Potassium 3.2. CRP improved from 7.9 to 2.8. INR stable at 1.82. Will discharge home today. Continue usual meds. Follow up with Waleska Rock in one week. - Patient Instructions Diet: Usual Diet as Tolerated Activity: As Tolerated - Discharge Plan *PRESCRIPTION DRUG MONITORING PROGRAM REVIEWED*: No *COPY OF PRESCRIPTION DRUG MONITORING REPORT IN PATIENT [place]: No Home Medications: Home Meds Acetaminophen [Tylenol Arthritis Pain] 650 mg PO Q8HR PRN 12/02/13 [History] Atenolol 50 mg PO DAILY 12/02/13 [History] Calc/D3/Mag/Zn/Hardware Assembler/Jeremy/[place] [Calcium 600 MG Plus Vit D] 1 each PO BID [History] Citalopram Hydrobromide [Citalopram HBr] 20 mg PO DAILY 12/02/13 [History] Cyanocobalamin (Vitamin B12) [Vitamin B12] 2,000 mcg IM ASDIRECTED 12/02/13 [ History] Furosemide 40 mg PO DAILY 12/02/13 [History] Glimepiride 2 mg PO DAILY 12/02/13 [History] Iron 3 tab PO DAILY 12/02/13 [History] Potassium 2 tab PO DAILY 12/02/13 [History] Nystatin [Nystatin Crm] 1 gm TOP QID PRN #1 tube 04/29/18 [Rx] Cholecalciferol (Vitamin D3) [Vitamin D3] 5,000 unit PO DAILY 05/30/19 [History] Insulin Glargine,Hum.Rec.Anlog [Basaglar Kwikpen U-100] 25 unit SQ BID 05/30/19 [History] Levothyroxine Sodium [Synthroid] 25 mcg PO ACBREAKFAST 05/30/19 [History] Levothyroxine Sodium [Synthroid] 200 mcg PO ACBREAKFAST 05/30/19 [History] Magnesium Oxide 750 mg PO DAILY 05/30/19 [History] Warfarin [Coumadin] 7.5 mg PO ASDIRECTED 05/30/19 [History] Patient Handouts: Viral Gastroenteritis, Adult Referrals: Waleska Rock PA-C [Primary Care Provider] - (Follow up with Waleska Rock PA-C in one week) - Discharge Summary/Plan Comment DC Time >30 min.: No - General Info Date of Service: 06/02/19 Admission Dx/Problem (Free Text: SBO Functional Status: Reports: Pain Controlled, Tolerating Diet, Ambulating - Review of Systems General: Denies: Weakness, Fatigue, Malaise HEENT: Reports: No Symptoms Pulmonary: Denies: Shortness of Breath, Cough Cardiovascular: Denies: Chest Pain, Edema, Lightheadedness Gastrointestinal: Reports: Abdominal Pain (much improved), Diarrhea. Denies: Hematochezia, Melena Genitourinary: Reports: No Symptoms Musculoskeletal: Reports: No Symptoms - Patient Data Vitals - Most Recent: Last Vital Signs Temp 98 F 06/02/19 08:00 Pulse 77 06/02/19 08:21 Resp 18 06/02/19 08:00 BP 108/52 L 06/02/19 08:21 Pulse Ox 99 06/02/19 08:00 Weight - Most Recent: 276 lb Lab Results - Last 24 hrs: Laboratory Results - last 24 hr 06/01/19 06/01/19 06/02/19 Range/Units 18:16 20:33 07:00 WBC 7.6 (5.0-10.0) 10^3/uL RBC 3.89 L (4.00-5.50) 10^6/uL Hgb 9.8 L (12.0-16.0) g/dL Hct 33.4 L (37.0-47.0) % MCV 85.9 (82.0-94.0) fL MCH 25.2 L (27.0-32.0) pg MCHC 29.3 L (33.0-38.0) g/dL RDW Coeff of Chris 16.9 H (11.0-15.0) % Plt Count 531 H (150-400) 10^3/uL Neut % (Auto) 71.1 (35-85) % Lymph % (Auto) 19.1 (10-55) % [place] % (Auto) 7.0 (0-16) % Eos % (Auto) 2.5 (0-5) % Baso % (Auto) 0.3 (0-3) % Neut # (Auto) 5.39 (1.80-7.00) 10^3/uL Lymph # (Auto) 1.45 (1.00-4.80) 10^3/uL [place] # (Auto) 0.53 (0.00-0.80) 10^3/uL Eos # (Auto) 0.19 (0.00-0.45) 10^3/uL Baso # (Auto) 0.02 10^3/uL Sodium (136-145) mEq/L Potassium (3.5-5.0) mEq/L Chloride (98-106) mEq/L Carbon Dioxide (21-32) mmol/L BUN (7-18) mg/dL Creatinine (0.6-1.0) mg/dL Est Cr Clr Drug Dosing mL/min Estimated GFR (MDRD) (>=60) mL/min Glucose (75-99) mg/dL POC Glucose 105 110 H (75-105) mg/dl Calcium (8.4-10.1) mg/dL C-Reactive Protein (0.2-0.8) mg/dL 06/02/19 06/02/19 Range/Units 07:00 08:46 WBC (5.0-10.0) 10^3/uL RBC (4.00-5.50) 10^6/uL Hgb (12.0-16.0) g/dL Hct (37.0-47.0) % MCV (82.0-94.0) fL MCH (27.0-32.0) pg MCHC (33.0-38.0) g/dL RDW Coeff of Chris (11.0-15.0) % Plt Count (150-400) 10^3/uL Neut % (Auto) (35-85) % Lymph % (Auto) (10-55) % [place] % (Auto) (0-16) % Eos % (Auto) (0-5) % Baso % (Auto) (0-3) % Neut # (Auto) (1.80-7.00) 10^3/uL Lymph # (Auto) (1.00-4.80) 10^3/uL [place] # (Auto) (0.00-0.80) 10^3/uL Eos # (Auto) (0.00-0.45) 10^3/uL Baso # (Auto) 10^3/uL Sodium 144 (136-145) mEq/L Potassium 3.2 L (3.5-5.0) mEq/L Chloride 108 H (98-106) mEq/L Carbon Dioxide 27 (21-32) mmol/L BUN 23 H (7-18) mg/dL Creatinine 1.4 H (0.6-1.0) mg/dL Est Cr Clr Drug Dosing 33.50 mL/min Estimated GFR (MDRD) 37 L (>=60) mL/min Glucose 74 L D (75-99) mg/dL POC Glucose 91 (75-105) mg/dl Calcium 8.1 L (8.4-10.1) mg/dL C-Reactive Protein 2.8 H (0.2-0.8) mg/dL Med Orders - Current: Current Medications Discontinued Medications Acetaminophen (Tylenol) 650 mg PO Q4H PRN PRN Reason: Pain Last Admin: 06/02/19 06:36 Dose: 650 mg Atenolol (Tenormin) 50 mg PO DAILY [facility] Last Admin: 06/02/19 08:21 Dose: 50 mg Calcium Carbonate (Calcium Carbonate/Vitamin D 1250 Mg-200 Unit) 1 tab PO BID [facility] Last Admin: 06/02/19 08:19 Dose: 1 tab Cholecalciferol (Vitamin D3) 125 mcg PO DAILY [facility] Last Admin: 06/02/19 08:19 Dose: 125 mcg Citalopram Hydrobromide (Celexa) 20 mg PO DAILY [facility] Last Admin: 06/02/19 08:22 Dose: 20 mg Cyanocobalamin (Vitamin B12) 2,000 mcg IM Q30D [facility] Ferrous Sulfate (Ferrous Sulfate) 324 mg PO DAILY [facility] Last Admin: 06/02/19 08:21 Dose: 324 mg Furosemide (Lasix) 40 mg PO DAILY [facility] Last Admin: 06/02/19 08:21 Dose: 40 mg Glimepiride (Glimepiride) 2 mg PO DAILY [facility] Last Admin: 06/02/19 08:20 Dose: 2 mg Lactated Ringer's (Ringers, Lactated) 1,000 mls @ 50 mls/hr IV ASDIRECTED [facility] Last Admin: 05/30/19 13:39 Dose: 50 mls/hr Sodium Chloride (Normal Saline) 1,000 mls @ 1 mls/hr IV ASDIRECTED [facility] Last Admin: 05/31/19 23:59 Dose: 1 mls/hr Insulin Glargine (Lantus Solostar) 25 units SUBCUT BID [facility] Last Admin: 06/02/19 08:47 Dose: 25 units Iopamidol (Isovue-370 (76%)) 160 ml IV ONETIME ONE Stop: 05/31/19 17:12 Last Admin: 05/31/19 18:00 Dose: 160 ml Levothyroxine Sodium (Synthroid) 25 mcg PO ACBREAKFAST [facility] Last Admin: 06/02/19 06:36 Dose: 25 mcg Levothyroxine Sodium (Synthroid) 200 mcg PO ACBREAKFAST [facility] Last Admin: 06/02/19 06:36 Dose: 200 mcg Magnesium Oxide (Magnesium Oxide) 750 mg PO DAILY [facility] Last Admin: 06/02/19 08:21 Dose: 750 mg Morphine Sulfate (Morphine) 4 mg IVPUSH ONETIME ONE Stop: 05/31/19 16:36 Last Admin: 05/31/19 18:03 Dose: 4 mg Non-Formulary Medication (Acetaminophen [Tylenol Arthritis Pain]) 650 mg PO Q8HR PRN PRN Reason: Pain Nystatin (Nystatin Crm) 0 gm TOP QID PRN PRN Reason: Itching Ondansetron HCl (Zofran Odt) 4 mg PO Q4H PRN PRN Reason: nausea, able to take PO Ondansetron HCl (Zofran) 4 mg IV Q4H PRN PRN Reason: Nausea/Vomiting Last Admin: 05/30/19 13:36 Dose: 4 mg Pantoprazole Sodium (Protonix Iv) 40 mg IVPUSH Q12H [facility] Last Admin: 05/30/19 13:32 Dose: 40 mg Pantoprazole Sodium (Protonix Iv) 40 mg IVPUSH 0800,1999 [facility] Last Admin: 06/02/19 08:18 Dose: 40 mg Potassium (Potassium Gluconate) 4 meq PO DAILY [facility] Last Admin: 06/02/19 08:19 Dose: 4 meq Warfarin Sodium (Coumadin) 7.5 mg PO Q7D [facility] Warfarin Sodium (Coumadin) 3.75 mg PO SuMoTuWeThSa@1200 [facility] Last Admin: 06/01/19 11:01 Dose: 3.75 mg - Exam General: Reports: Alert, Oriented HEENT: Reports: Mucous Membr. Moist/[place] Neck: Reports: Supple Lungs: Reports: Clear to Auscultation, Normal Respiratory Effort Cardiovascular: Reports: Regular Rate, Regular Rhythm GI/Abdominal Exam: Normal Bowel Sounds, Soft, Non-Tender, Other (large pannus ) Extremities: Normal Inspection, Pedal Edema (1+) Neurological: Reports: No New Focal Deficit
[2019-06-06] MEDS ORDERED: Warfarin 2.5 MG Tab PO SCH (12:00)
[2019-06-13] MEDS ORDERED: Cyanocobalamin (Vitamin B12) 1,000 MCG/ML SDV IM SCH (08:00)
== END 2019-06-02 11:16 | disposition home or self-care (01) | DRG 392 ==
LOC: CC.MS 10:55 → CC.FCMC 10:55 → CC.MS 11:55 → UNDOADMIN 11:55 → CC.MS 11:59
PROVIDERS: ADMIT Physician Assistant Medical; ATTEND Family Medicine
DX: R10.30 Lower abdominal pain, unspecified (principal); K52.9 Noninfective gastroenteritis and colitis, unspecified; I48.20 Chronic atrial fibrillation, unspecified; N18.4 Chronic kidney disease, stage 4 (severe); I12.9 Hypertensive chronic kidney disease with stage 1 through stage 4 chronic kidney disease, or unspecified chronic kidney disease; K31.89 Other diseases of stomach and duodenum; E11.22 Type 2 diabetes mellitus with diabetic chronic kidney disease; Z90.49 Acquired absence of other specified parts of digestive tract; Z90.89 Acquired absence of other organs; Z79.899 Other long term (current) drug therapy; Z79.01 Long term (current) use of anticoagulants; Z79.84 Long term (current) use of oral hypoglycemic drugs; R11.10 Vomiting, unspecified
CPT/HCPCS: 36415; 74018; 74019; 74177; 80048; 80053; 81001; 82962; 85025; 85610; 85730; 86140; A9270-GY; C9113; J1815-GY; J2270; J2405; J7030; J7120; Q9967

== ENCOUNTER 2020-02-20 09:08 | Inpatient (IN) | payer MEDICARE, OTHER ==
[2020-02-20 09:31] LABS: HEMOGLOBIN A1C 5.2 % (4.8-5.6)
[2020-02-20] MEDS ORDERED: Sodium Chloride 0.9% 10 ML Syringe FLUSH PRN (11:17)
[2020-02-20 12:02] LABS: CHLORIDE,CL 110 mEq/L (98-106); SODIUM,NA 144 mEq/L (136-145)
[2020-02-20] MEDS ORDERED: 50% Dextrose in Water 50 ML Syringe IVPUSH STA (12:08)
[2020-02-20] MEDS: Piperacillin/Tazobactam 3.375 GM in Sodium Chloride 0.9% 100 ML IV SCH ×2 (12:21→19:08)
[2020-02-20] MEDS ORDERED: 50% Dextrose in Water 50 ML Syringe ONE (12:28)
[2020-02-20] MEDS ORDERED: Iopamidol 755 Mg/ML 100 ML Bottle IVPUSH ONE (12:53)
[2020-02-20] MEDS ORDERED: Barium Sulfate Oral Susp 450 ML Bottle PO ONE (12:53)
[2020-02-20] MEDS ORDERED: Warfarin 2.5 MG Tab PO SCH (14:30)
[2020-02-20] MEDS: Insulin Glargine,Human Rec. Analog 100 Units/ML 3 ML Pen SUBCUT SCH (20:01)
[2020-02-20] MEDS: Nystatin Topical Powder 15 GM Bottle TOP SCH (20:02)
[2020-02-21] MEDS: Piperacillin/Tazobactam 3.375 GM in Sodium Chloride 0.9% 100 ML IV SCH ×3 (03:05→18:57)
[2020-02-21] MEDS: Acetaminophen 325 MG Tab PO PRN ×2 (03:12→14:23)
[2020-02-21] MEDS: Levothyroxine 50 MCG Tab PO SCH (06:26)
[2020-02-21] MEDS: Levothyroxine 100 MCG Tab PO SCH (06:26)
[2020-02-21] MEDS: Furosemide 40 MG Tab PO SCH (07:53)
[2020-02-21] MEDS: Atenolol 50 MG Tab PO SCH (07:53)
[2020-02-21] MEDS: Citalopram 10 MG Tab PO SCH (07:54)
[2020-02-21] MEDS: Nystatin Topical Powder 15 GM Bottle TOP SCH ×2 (07:54→20:15)
[2020-02-21] MEDS: Insulin Glargine,Human Rec. Analog 100 Units/ML 3 ML Pen SUBCUT SCH ×2 (07:54→20:15)
[2020-02-21] MEDS: Warfarin 2.5 MG Tab PO SCH (15:00)
--- NOTE | 2020-02-21 16:04 | PCM.PN ---
- General Info Date of Service: 02/21/20 Functional Status: Reports: Pain Controlled, Tolerating Diet, Ambulating (with walker and assistance a short distance) - Review of Systems General: Reports: Weakness (generalized). Denies: Fever HEENT: Reports: No Symptoms Pulmonary: Reports: No Symptoms Cardiovascular: Reports: No Symptoms Gastrointestinal: Reports: No Symptoms Genitourinary: Reports: No Symptoms Musculoskeletal: Reports: No Symptoms Skin: Reports: Other (reported redness to LLE with reported wound) Neurological: Reports: No Symptoms Psychiatric: Reports: No Symptoms - Patient Data Vitals - Most Recent: Last Vital Signs Temp 97.8 F 02/21/20 11:20 Pulse 64 02/21/20 11:20 Resp 16 02/21/20 11:20 BP 117/50 L 02/21/20 11:20 Pulse Ox 98 02/21/20 11:20 Weight - Most Recent: 274 lb 11.2 oz Lab Results Last 24 Hours: Laboratory Results - last 24 hr 02/20/20 02/20/20 02/21/20 Range/Units 17:46 19:59 05:00 WBC 6.4 (5.0-10.0) 10^3/uL RBC 3.47 L (4.00-5.50) 10^6/uL Hgb 8.6 L (12.0-16.0) g/dL Hct 29.3 L (37.0-47.0) % MCV 84.4 (82.0-94.0) fL MCH 24.8 L (27.0-32.0) pg MCHC 29.4 L (33.0-38.0) g/dL RDW Coeff of Chris 18.2 H (11.0-15.0) % Plt Count 473 H (150-400) 10^3/uL Neut % (Auto) 67.4 (35-85) % Lymph % (Auto) 21.2 (10-55) % [place] % (Auto) 6.8 (0-16) % Eos % (Auto) 4.4 (0-5) % Baso % (Auto) 0.2 (0-3) % Neut # (Auto) 4.34 (1.80-7.00) 10^3/uL Lymph # (Auto) 1.36 (1.00-4.80) 10^3/uL Levy # (Auto) 0.44 (0.00-0.80) 10^3/uL Eos # (Auto) 0.28 (0.00-0.45) 10^3/uL Baso # (Auto) 0.01 10^3/uL PT (9.7-12.3) SEC INR (0.92-1.18) Sodium (136-145) mEq/L Potassium (3.5-5.0) mEq/L Chloride (98-106) mEq/L Carbon Dioxide (21-32) mmol/L BUN (7-18) mg/dL Creatinine (0.6-1.0) mg/dL Est Cr Clr Drug Dosing mL/min Estimated GFR (MDRD) (>=60) mL/min Glucose (75-99) mg/dL POC Glucose 56 L 96 (75-105) mg/dl Calcium (8.4-10.1) mg/dL C-Reactive Protein (0.2-0.8) mg/dL 02/21/20 02/21/20 02/21/20 Range/Units 05:00 06:00 07:39 WBC (5.0-10.0) 10^3/uL RBC (4.00-5.50) 10^6/uL Hgb (12.0-16.0) g/dL Hct (37.0-47.0) % MCV (82.0-94.0) fL MCH (27.0-32.0) pg MCHC (33.0-38.0) g/dL RDW Coeff of Chris (11.0-15.0) % Plt Count (150-400) 10^3/uL Neut % (Auto) (35-85) % Lymph % (Auto) (10-55) % [place] % (Auto) (0-16) % Eos % (Auto) (0-5) % Baso % (Auto) (0-3) % Neut # (Auto) (1.80-7.00) 10^3/uL Lymph # (Auto) (1.00-4.80) 10^3/uL Levy # (Auto) (0.00-0.80) 10^3/uL Eos # (Auto) (0.00-0.45) 10^3/uL Baso # (Auto) 10^3/uL PT 19.6 H (9.7-12.3) SEC INR 1.95 H (0.92-1.18) Sodium 144 (136-145) mEq/L Potassium 4.6 (3.5-5.0) mEq/L Chloride 110 H (98-106) mEq/L Carbon Dioxide 28 (21-32) mmol/L BUN 26 H (7-18) mg/dL Creatinine 1.4 H (0.6-1.0) mg/dL Est Cr Clr Drug Dosing 33.50 mL/min Estimated GFR (MDRD) 37 L (>=60) mL/min Glucose 65 L D (75-99) mg/dL POC Glucose 63 L (75-105) mg/dl Calcium 8.5 (8.4-10.1) mg/dL C-Reactive Protein 2.8 H (0.2-0.8) mg/dL 07/25/20 Range/Units 11:39 WBC (5.0-10.0) 10^3/uL RBC (4.00-5.50) 10^6/uL Hgb (12.0-16.0) g/dL Hct (37.0-47.0) % MCV (82.0-94.0) fL MCH (27.0-32.0) pg MCHC (33.0-38.0) g/dL RDW Coeff of Chris (11.0-15.0) % Plt Count (150-400) 10^3/uL Neut % (Auto) (35-85) % Lymph % (Auto) (10-55) % Levy % (Auto) (0-16) % Eos % (Auto) (0-5) % Baso % (Auto) (0-3) % Neut # (Auto) (1.80-7.00) 10^3/uL Lymph # (Auto) (1.00-4.80) 10^3/uL Levy # (Auto) (0.00-0.80) 10^3/uL Eos # (Auto) (0.00-0.45) 10^3/uL Baso # (Auto) 10^3/uL PT (9.7-12.3) SEC INR (0.92-1.18) Sodium (136-145) mEq/L Potassium (3.5-5.0) mEq/L Chloride (98-106) mEq/L Carbon Dioxide (21-32) mmol/L BUN (7-18) mg/dL Creatinine (0.6-1.0) mg/dL Est Cr Clr Drug Dosing mL/min Estimated GFR (MDRD) (>=60) mL/min Glucose (75-99) mg/dL POC Glucose 61 L (75-105) mg/dl Calcium (8.4-10.1) mg/dL C-Reactive Protein (0.2-0.8) mg/dL Matthew Results Last 24 Hours: Microbiology 02/20/20 13:40 Wound Culture - Preliminary Leg, Left Gram Negative Rods Gram Positive Cocci 02/20/20 17:11 Occult Blood - Preliminary Stool / Feces - Stool, Formed Med Orders - Current: Current Medications Acetaminophen (Tylenol) 650 mg PO Q6H PRN PRN Reason: Fever Last Admin: 02/21/20 14:23 Dose: 650 mg Documented by: Atenolol (Tenormin) 50 mg PO DAILY [facility] Last Admin: 02/21/20 07:53 Dose: 50 mg Documented by: Citalopram Hydrobromide (Celexa) 20 mg PO DAILY [facility] Last Admin: 02/21/20 07:54 Dose: 20 mg Documented by: Furosemide (Lasix) 40 mg PO DAILY [facility] Last Admin: 02/21/20 07:53 Dose: 40 mg Documented by: Glimepiride (Glimepiride) 2 mg PO DAILY [facility] Last Admin: 02/21/20 07:53 Dose: 2 mg Documented by: Piperacillin Sod/Tazobactam (Sod 3.375 gm/ Sodium Chloride) 100 mls @ 200 mls/hr IV Q8H [facility] Last Admin: 02/21/20 11:32 Dose: 200 mls/hr Documented by: Insulin Glargine (Lantus Solostar) 20 units SUBCUT BID [facility] Last Admin: 02/21/20 07:54 Dose: Not Given Documented by: Levothyroxine Sodium (Synthroid) 200 mcg PO ACBREAKFAST [facility] Last Admin: 02/21/20 06:26 Dose: 200 mcg Documented by: Levothyroxine Sodium (Synthroid) 50 mcg PO ACBREAKFAST [facility] Last Admin: 07/25/20 06:26 Dose: 50 mcg Documented by: Nystatin (Nystop) 0 gm TOP BID [facility] Last Admin: 02/21/20 07:54 Dose: 1 applic Documented by: Sodium Chloride (Saline Flush) 10 ml FLUSH ASDIRECTED PRN PRN Reason: Keep Vein Open Warfarin Sodium (Coumadin) 7.5 mg PO Th@1200 [facility] Warfarin Sodium (Coumadin) 3.75 mg PO SUMOTUWEFRSA@1200 [facility] Last Admin: 02/21/20 15:00 Dose: Not Given Documented by: Discontinued Medications Barium Sulfate (Readi-Cat 2) 900 ml PO ONETIME ONE Stop: 02/20/20 12:54 Last Admin: 02/20/20 13:25 Dose: 900 ml Documented by: Dextrose/Water (Dextrose 50% In Water) 25 ml IVPUSH ONETIME STA Stop: 02/20/20 12:09 Last Admin: 02/20/20 12:15 Dose: 25 ml Documented by: Dextrose/Water (Dextrose 50% In Water) Confirm Administered Dose 50 ml .ROUTE .STK-MED ONE Stop: 02/20/20 12:29 Last Admin: 02/20/20 12:33 Dose: Not Given Documented by: Iopamidol (Isovue-370 (76%)) 160 ml IVPUSH ONETIME ONE Stop: 02/20/20 12:54 Last Admin: 02/20/20 13:19 Dose: 160 ml Documented by: Warfarin Sodium (Coumadin) 3.75 mg PO TuWeFr@1200 [facility] Last Admin: 02/20/20 14:38 Dose: 3.75 mg Documented by: - Exam General: Alert, Oriented, Cooperative Lungs: Clear to Auscultation, Normal Respiratory Effort Cardiovascular: Regular Rate, Regular Rhythm GI/Abdominal Exam: Other (obese, large panus) Back Exam: Normal Inspection Extremities: Other (LLE wrap dressing in place and RLE. These were placed by PT and not to be removed. It is reported patient has LLE cellulitis with redness, heat, and an open wound. ) Peripheral Pulses: 2+: Popliteal (L), Popliteal (R) Skin: Warm, Dry, Intact Psy/Mental Status: Alert, Normal Affect, Normal Mood Sepsis Event Note - Evaluation Sepsis Screening Result: No Definite Risk - Focused Exam Vital Signs: Vital Signs Temp Pulse Pulse Resp BP BP Pulse Ox 02/21/20 11:20 97.8 F 64 16 117/50 L 98 02/21/20 07:53 60 113/47 L 02/21/20 07:52 98.7 F 60 16 113/47 L 98 Date Exam was Performed: 02/21/20 Time Exam was Performed: 16:04 - Problem List Review Problem List Initiated/Reviewed/Updated: Yes - My Orders Last 24 Hours: My Active Orders 02/20/20 17:23 Acetaminophen [Tylenol] 650 mg PO Q6H PRN 02/22/20 05:00 BASIC METABOLIC PANEL,BMP [CHEM] DAILY CBC WITH AUTO DIFF [HEME] DAILY CRP [C-REACTIVE PROTEIN] [CHEM] DAILY 02/23/20 05:00 BASIC METABOLIC PANEL,BMP [CHEM] DAILY CBC WITH AUTO DIFF [HEME] DAILY CRP [C-REACTIVE PROTEIN] [CHEM] DAILY - Plan Plan:: This patient was admitted for cellulitis with open wound to the E. Dressings were applied by PT and remain in place. The patient reports that she feels generally weak. The patient is crying once I enter the room because she reports that her has not been to visit her today and that her is having transportation problems to come visit. The patient reports she is not wanting to go to a snf, but reports that she will stay here to get better in the hospital. I believe the plan is get this patient to a snf once she is improved here. She is not able to take care of herself at home with her . After her exam, the called to speak to his , she is happy about this now. Patient has a large panus on exam. Patient has low hgb, has been ordered three hemo, first negative. But, there is a small amount of dry blood on a chux, perhaps frontal. She denies shortness of breath, chest pain, lightheadedness. Vitals stable. Her labs yesterday were hgb 8.9, INR 1.76 coumadin held, BUN 30, CR 1.3, CRP 2.8. Today labs are hgb 8.6, INR 1.95, BUN 26, CR 1.4, CRP 2.8. Plan to continue abx. See social security assessor sunday. Also, to monitor hgb and vitals. No transfusion at this time. Continue to hold coumadin.
[2020-02-22] MEDS: Piperacillin/Tazobactam 3.375 GM in Sodium Chloride 0.9% 100 ML IV SCH ×3 (03:08→18:46)
[2020-02-22] MEDS: Levothyroxine 100 MCG Tab PO SCH (06:35)
[2020-02-22] MEDS: Levothyroxine 50 MCG Tab PO SCH (06:36)
[2020-02-22] MEDS: Furosemide 40 MG Tab PO SCH (07:43)
[2020-02-22] MEDS: Atenolol 50 MG Tab PO SCH (07:43)
[2020-02-22] MEDS: Nystatin Topical Powder 15 GM Bottle TOP SCH ×2 (07:44→20:10)
[2020-02-22] MEDS: Insulin Glargine,Human Rec. Analog 100 Units/ML 3 ML Pen SUBCUT SCH ×2 (07:44→20:11)
[2020-02-22] MEDS: Citalopram 10 MG Tab PO SCH (07:44)
--- NOTE | 2020-02-22 08:50 | PCM.PN ---
- General Info Date of Service: 02/22/20 Functional Status: Reports: Pain Controlled, Tolerating Diet, Ambulating (with walker to the bathroom ) - Review of Systems General: Reports: Weakness (generalized) HEENT: Reports: No Symptoms Pulmonary: Reports: No Symptoms Cardiovascular: Reports: No Symptoms Gastrointestinal: Reports: No Symptoms Genitourinary: Reports: No Symptoms Musculoskeletal: Reports: No Symptoms Skin: Reports: Other (LLE redness, wound) Neurological: Reports: No Symptoms Psychiatric: Reports: No Symptoms - Patient Data Vitals - Most Recent: Last Vital Signs Temp 99.2 F 02/22/20 08:00 Pulse 67 02/22/20 08:00 Resp 18 02/22/20 08:00 BP 120/58 L 02/22/20 08:00 Pulse Ox 98 02/22/20 08:00 Weight - Most Recent: 273 lb 12.8 oz Lab Results Last 24 Hours: Laboratory Results - last 24 hr 02/21/20 02/21/20 02/21/20 Range/Units 11:39 17:20 20:11 WBC (5.0-10.0) 10^3/uL RBC (4.00-5.50) 10^6/uL Hgb (12.0-16.0) g/dL Hct (37.0-47.0) % MCV (82.0-94.0) fL MCH (27.0-32.0) pg MCHC (33.0-38.0) g/dL RDW Coeff of Chris (11.0-15.0) % Plt Count (150-400) 10^3/uL Neut % (Auto) (35-85) % Lymph % (Auto) (10-55) % Ida % (Auto) (0-16) % Eos % (Auto) (0-5) % Baso % (Auto) (0-3) % Neut # (Auto) (1.80-7.00) 10^3/uL Lymph # (Auto) (1.00-4.80) 10^3/uL Ida # (Auto) (0.00-0.80) 10^3/uL Eos # (Auto) (0.00-0.45) 10^3/uL Baso # (Auto) 10^3/uL POC Glucose 61 L 58 L 73 L (75-105) mg/dl 07/25/20 07/26/20 07/26/20 Range/Units 21:44 05:00 07:39 WBC 8.5 (5.0-10.0) 10^3/uL RBC 3.62 L (4.00-5.50) 10^6/uL Hgb 9.0 L (12.0-16.0) g/dL Hct 30.7 L (37.0-47.0) % MCV 84.8 (82.0-94.0) fL MCH 24.9 L (27.0-32.0) pg MCHC 29.3 L (33.0-38.0) g/dL RDW Coeff of Chris 18.3 H (11.0-15.0) % Plt Count 547 H (150-400) 10^3/uL Neut % (Auto) 61.0 (35-85) % Lymph % (Auto) 30.2 (10-55) % Ida % (Auto) 5.2 (0-16) % Eos % (Auto) 3.5 (0-5) % Baso % (Auto) 0.1 (0-3) % Neut # (Auto) 5.21 (1.80-7.00) 10^3/uL Lymph # (Auto) 2.58 (1.00-4.80) 10^3/uL Ida # (Auto) 0.44 (0.00-0.80) 10^3/uL Eos # (Auto) 0.30 (0.00-0.45) 10^3/uL Baso # (Auto) 0.01 10^3/uL POC Glucose 135 H 91 (75-105) mg/dl Matthew Results Last 24 Hours: Microbiology 02/20/20 13:40 Wound Culture - Preliminary Leg, Left Gram Negative Rods Gram Positive Cocci Med Orders - Current: Current Medications Acetaminophen (Tylenol) 650 mg PO Q6H PRN PRN Reason: Fever Last Admin: 02/21/20 14:23 Dose: 650 mg Documented by: Atenolol (Tenormin) 50 mg PO DAILY [facility] Last Admin: 02/22/20 07:43 Dose: 50 mg Documented by: Citalopram Hydrobromide (Celexa) 20 mg PO DAILY [facility] Last Admin: 02/22/20 07:44 Dose: 20 mg Documented by: Furosemide (Lasix) 40 mg PO DAILY [facility] Last Admin: 02/22/20 07:43 Dose: 40 mg Documented by: Glimepiride (Glimepiride) 2 mg PO DAILY [facility] Last Admin: 02/22/20 07:43 Dose: 2 mg Documented by: Piperacillin Sod/Tazobactam (Sod 3.375 gm/ Sodium Chloride) 100 mls @ 200 mls/hr IV Q8H [facility] Last Admin: 02/22/20 03:08 Dose: 200 mls/hr Documented by: Insulin Glargine (Lantus Solostar) 20 units SUBCUT BID [facility] Last Admin: 02/22/20 07:44 Dose: Not Given Documented by: Levothyroxine Sodium (Synthroid) 200 mcg PO ACBREAKFAST [facility] Last Admin: 02/22/20 06:35 Dose: 200 mcg Documented by: Levothyroxine Sodium (Synthroid) 50 mcg PO ACBREAKFAST [facility] Last Admin: 02/22/20 06:36 Dose: 50 mcg Documented by: Nystatin (Nystop) 0 gm TOP BID [facility] Last Admin: 02/22/20 07:44 Dose: 1 applic Documented by: Sodium Chloride (Saline Flush) 10 ml FLUSH ASDIRECTED PRN PRN Reason: Keep Vein Open Warfarin Sodium (Coumadin) 7.5 mg PO Th@1200 CIN[facility]IA Warfarin Sodium (Coumadin) 3.75 mg PO SUMOTUWEFRSA@1200 [facility] Last Admin: 02/21/20 15:00 Dose: Not Given Documented by: Discontinued Medications Barium Sulfate (Readi-Cat 2) 900 ml PO ONETIME ONE Stop: 02/20/20 12:54 Last Admin: 02/20/20 13:25 Dose: 900 ml Documented by: Dextrose/Water (Dextrose 50% In Water) 25 ml IVPUSH ONETIME STA Stop: 02/20/20 12:09 Last Admin: 02/20/20 12:15 Dose: 25 ml Documented by: Dextrose/Water (Dextrose 50% In Water) Confirm Administered Dose 50 ml .ROUTE .STK-MED ONE Stop: 02/20/20 12:29 Last Admin: 02/20/20 12:33 Dose: Not Given Documented by: Iopamidol (Isovue-370 (76%)) 160 ml IVPUSH ONETIME ONE Stop: 02/20/20 12:54 Last Admin: 02/20/20 13:19 Dose: 160 ml Documented by: Warfarin Sodium (Coumadin) 3.75 mg PO TuWeFr@1200 [facility] Last Admin: 02/20/20 14:38 Dose: 3.75 mg Documented by: - Exam General: Alert, Oriented, Cooperative, No Acute Distress Neck: Supple, Trachea Midline Lungs: Clear to Auscultation, Normal Respiratory Effort Cardiovascular: Regular Rate, Regular Rhythm GI/Abdominal Exam: Non-Tender, Other (obese, very large panus) Back Exam: Normal Inspection Extremities: Increased Warmth (LLE), Redness (LLE) Peripheral Pulses: 2+: Radial (L), Radial (R), Dorsalis Pedis (L), Dorsalis Pedis (R) Skin: Warm, Dry Wound/Incisions: Other (wound LLE) Psy/Mental Status: Alert, Normal Affect, Normal Mood Sepsis Event Note - Evaluation Sepsis Screening Result: No Definite Risk - Focused Exam Vital Signs: Vital Signs Temp Pulse Pulse Resp BP BP Pulse Ox 02/22/20 08:00 99.2 F 67 18 120/58 L 98 02/22/20 07:43 67 120/58 L 02/22/20 03:07 72 18 125/58 L 97 02/22/20 00:00 97.6 F 72 18 128/58 L 98 Date Exam was Performed: 02/22/20 Time Exam was Performed: 09:13 - Problem List Review Problem List Initiated/Reviewed/Updated: Yes - My Orders Last 24 Hours: My Active Orders 02/22/20 05:00 BASIC METABOLIC PANEL,BMP [CHEM] DAILY CRP [C-REACTIVE PROTEIN] [CHEM] DAILY 02/23/20 05:00 BASIC METABOLIC PANEL,BMP [CHEM] DAILY CBC WITH AUTO DIFF [HEME] DAILY CRP [C-REACTIVE PROTEIN] [CHEM] DAILY - Plan Plan:: 02/21/20 1520 This patient was admitted for cellulitis with open wound to the E. Dressings were applied by PT and remain in place. The patient reports that she feels generally weak. The patient is crying once I enter the room because she reports that her has not been to visit her today and that her is having transportation problems to come visit. The patient reports she is not wanting to go to a care home, but reports that she will stay here to get better in the hospital. I believe the plan is get this patient to a care home once she is improved here. She is not able to take care of herself at home with her . After her exam, the called to speak to his , she is happy about this now. Patient has a large panus on exam. Patient has low hgb, has been ordered three hemo, first negative. But, there is a small amount of dry blood on a chux, perhaps frontal. She denies shortness of breath, chest pain, lightheadedness. Vitals stable. Her labs yesterday were hgb 8.9, INR 1.76 coumadin held, BUN 30, CR 1.3, CRP 2.8. Today labs are hgb 8.6, INR 1.95, BUN 26, CR 1.4, CRP 2.8. Plan to continue abx. See manager social responsibility sunday. Also, to monitor hgb and vitals. No transfusion at this time. Continue to hold coumadin. 02/22/20 0800 This patient was admitted for cellulitis with open wound to the [facility]. Dressings were applied by PT and remain in place. The patient reports that she feels generally weak. The patient is crying once I enter the room again. She reports she is upset because her has not been in to see her. She also reports her bleeding she has had is from her vagina. She reports she has had this for about 1 year and her doctors are aware of the bleeding. She reports sometimes its just a little blood, other times its a lot. Again, chux was small amount of blood. Patient leg wraps remain in place. Today labs are hgb 9.0, INR 1.71, CR 1.5. Will continue to monitor her hgb, her coumadin was stopped due to her possible uterine bleeding. Her CR is up a little at 1.5, have ordered a 500ml NS bolus. Will continue admit.
[2020-02-22] MEDS ORDERED: Sodium Chloride 0.9% 500 ML IV ONE (09:15)
[2020-02-22] MEDS: Acetaminophen 325 MG Tab PO PRN (10:24)
[2020-02-22] MEDS: Warfarin 2.5 MG Tab PO SCH (11:10)
[2020-02-22] MEDS ORDERED: Loperamide 2 MG Cap PO PRN (14:15)
[2020-02-23] MEDS: Piperacillin/Tazobactam 3.375 GM in Sodium Chloride 0.9% 100 ML IV SCH ×2 (03:45→12:27)
[2020-02-23] MEDS: Levothyroxine 100 MCG Tab PO SCH (06:02)
[2020-02-23] MEDS: Levothyroxine 50 MCG Tab PO SCH (06:02)
[2020-02-23] MEDS: Citalopram 10 MG Tab PO SCH (07:46)
[2020-02-23] MEDS: Furosemide 40 MG Tab PO SCH (07:47)
[2020-02-23] MEDS: Atenolol 50 MG Tab PO SCH (07:47)
[2020-02-23] MEDS: Nystatin Topical Powder 15 GM Bottle TOP SCH (07:51)
[2020-02-23 07:52] VITALS: BP 121/65; PULSE 78
[2020-02-23] MEDS: Insulin Glargine,Human Rec. Analog 100 Units/ML 3 ML Pen SUBCUT SCH (12:21)
[2020-02-23] MEDS: Warfarin 2.5 MG Tab PO SCH (12:29)
--- NOTE | 2020-02-23 21:20 | PCM.DCSUM1 ---
Discharge Summary - Hospital Course Free Text/Narrative:: Patient presented to see Waleska Rock in clinic for diabetic exam. Family concerned about increase in confusion. Gets angry with and son at home and will not often listen to reason. She has been noncompliant with her meds, not taking meds as directed and throwing pills in to the garbage.No falls. Incontinent of bowel and bladder at times as she is unable to get to the bathroom on time. Blisters on legs and edema have been getting worse, does not elevate her legs at home. Exam showed blisters on legs bilaterally with redness, worse on the left calf. Was admitted for cellulitis in her legs, started on IV antibiotics. Family do not feel they can further care for patient at home. Social service was to consult regarding half-way placement. CT was done of abdomen which was negative for acute concerns. Diagnosis: Stroke: No Modified [place] Scale: No Symptoms at All Modified [place] Scale Score: 0 - Discharge Data Discharge Date: 02/23/20 Discharge Disposition: Home, Home Health Agency 06 Condition: Fair - Referral to Home Health Date of Face to Face Encounter: 02/23/20 Reason for Homebound Status: patient unable to drive due to decreased mobility Primary Care Physician: Waleska Rock PA-C Skilled Need: Nursing to follow medication compliance, insulin needs, blood pressure, wound care. Physical therapy and occupational therapy for stengthenin g, ADLs, ability to care for self at home, home safety. - Patient Summary/Data Complications: none Consults: Consultations 02/20/20 11:17 PT Evaluation and Treatment [CONS] Routine Hospital Course: Patient is doing better, up and ambulating with walker to bathroom. Still incontinent of urine at times. Blood sugars have been low so insulin has been held. Coumadin was held due to her chronic vaginal bleeding, has minimal drainage now. Has erythema under breasts and in groin, improving. here today and does feel she is better. Patient is adamant about returning home, tearful. He agrees to take her home and care for her again with the help of home health for strengthening. She is aware of the concerns about her home safety, incontinence and med compliance. Unna boots are intact to lower extremities. Less edema. Will have these changed on Sunday by PT either through home health or here if able. Will discharge home on Cleocin for cellulitis. Have her continue to monitor her blood sugars at home, may need to continue to hold insulin. is aware. Follow up with Waleska Rock next week. - Patient Instructions Diet: Low Sodium, Diabetic Diet Activity: As Tolerated - Discharge Plan *PRESCRIPTION DRUG MONITORING PROGRAM REVIEWED*: No *COPY OF PRESCRIPTION DRUG MONITORING REPORT IN PATIENT NIXON: No Prescriptions/Med Rec: clindamycin HCL [Cleocin] 300 mg PO QID #28 cap Nystatin [Nystop] 0 gm TOP BID #1 bottle Home Medications: Home Meds Acetaminophen [Tylenol Arthritis Pain] 650 mg PO Q8HR PRN 12/02/13 [History] Citalopram Hydrobromide [Citalopram HBr] 20 mg PO DAILY 12/02/13 [History] Cyanocobalamin (Vitamin B12) [Vitamin B12] 2,000 mcg IM ASDIRECTED 12/02/13 [History] Furosemide 40 mg PO DAILY 12/02/13 [History] Glimepiride 2 mg PO DAILY 12/02/13 [History] Potassium 2 tab PO DAILY 12/02/13 [History] atenoloL [Atenolol] 50 mg PO DAILY 12/02/13 [History] Insulin Glargine,Hum.Rec.Anlog [Basaglar Kwikpen U-100] 20 unit SQ BID 05/30/19 [History] Levothyroxine Sodium [Synthroid] 50 mcg PO ACBREAKFAST 05/30/19 [History] Levothyroxine Sodium [Synthroid] 200 mcg PO ACBREAKFAST 05/30/19 [History] Warfarin [Coumadin] 7.5 mg PO TH 05/30/19 [History] Warfarin [Coumadin] 3.75 mg PO SUMOTUWEFRSA 02/20/20 [History] Nystatin [Nystop] 0 gm TOP BID #1 bottle 02/23/20 [Rx] clindamycin HCL [Cleocin] 300 mg PO QID #28 cap 02/23/20 [Rx] Referrals: Waleska Rock PA-C [Primary Care Provider] - (Follow up with Waleska Rock in 10 days) - Discharge Summary/Plan Comment DC Time >30 min.: No - General Info Date of Service: 02/23/20 Admission Dx/Problem (Free Text: cellulitis vulnerable adult Functional Status: Reports: Pain Controlled, Tolerating Diet, Ambulating, Urinating - Review of Systems General: Reports: Weakness, Malaise. Denies: Fever, Fatigue HEENT: Reports: No Symptoms Pulmonary: Denies: Shortness of Breath, Cough Cardiovascular: Reports: Edema. Denies: Chest Pain, Lightheadedness Gastrointestinal: Reports: Diarrhea. Denies: Abdominal Pain, Nausea, Vomiting Genitourinary: Reports: Urgency, Incontinence Musculoskeletal: Reports: No Symptoms Skin: Reports: Other (tolerating unna boots to legs) Neurological: Reports: Weakness - Patient Data Vitals - Most Recent: Last Vital Signs Temp 99.2 F 02/23/20 08:00 Pulse 78 02/23/20 08:00 Resp 20 02/23/20 08:00 BP 121/65 02/23/20 08:00 Pulse Ox 97 02/23/20 08:00 Weight - Most Recent: 270 lb 11.2 oz Lab Results - Last 24 hrs: Laboratory Results - last 24 hr 02/23/20 02/23/20 02/23/20 Range/Units 05:00 05:00 06:00 WBC 6.8 (5.0-10.0) 10^3/uL RBC 3.47 L (4.00-5.50) 10^6/uL Hgb 8.7 L (12.0-16.0) g/dL Hct 29.3 L (37.0-47.0) % MCV 84.4 (82.0-94.0) fL MCH 25.1 L (27.0-32.0) pg MCHC 29.7 L (33.0-38.0) g/dL RDW Coeff of Chris 18.3 H (11.0-15.0) % Plt Count 503 H (150-400) 10^3/uL Neut % (Auto) 66.1 (35-85) % Lymph % (Auto) 25.0 (10-55) % Hawkins % (Auto) 5.7 (0-16) % Eos % (Auto) 2.9 (0-5) % Baso % (Auto) 0.3 (0-3) % Neut # (Auto) 4.51 (1.80-7.00) 10^3/uL Lymph # (Auto) 1.71 (1.00-4.80) 10^3/uL Hawkins # (Auto) 0.39 (0.00-0.80) 10^3/uL Eos # (Auto) 0.20 (0.00-0.45) 10^3/uL Baso # (Auto) 0.02 10^3/uL PT 13.3 H (9.7-12.3) SEC INR 1.32 H (0.92-1.18) Sodium 145 (136-145) mEq/L Potassium 4.3 (3.5-5.0) mEq/L Chloride 110 H (98-106) mEq/L Carbon Dioxide 29 (21-32) mmol/L BUN 23 H (7-18) mg/dL Creatinine 1.3 H (0.6-1.0) mg/dL Est Cr Clr Drug Dosing 36.08 mL/min Estimated GFR (MDRD) 40 L (>=60) mL/min Glucose 86 (75-99) mg/dL POC Glucose (75-105) mg/dl Calcium 8.4 (8.4-10.1) mg/dL C-Reactive Protein 1.1 H (0.2-0.8) mg/dL 02/23/20 02/23/20 Range/Units 07:50 12:26 WBC (5.0-10.0) 10^3/uL RBC (4.00-5.50) 10^6/uL Hgb (12.0-16.0) g/dL Hct (37.0-47.0) % MCV (82.0-94.0) fL MCH (27.0-32.0) pg MCHC (33.0-38.0) g/dL RDW Coeff of Chris (11.0-15.0) % Plt Count (150-400) 10^3/uL Neut % (Auto) (35-85) % Lymph % (Auto) (10-55) % Hawkins % (Auto) (0-16) % Eos % (Auto) (0-5) % Baso % (Auto) (0-3) % Neut # (Auto) (1.80-7.00) 10^3/uL Lymph # (Auto) (1.00-4.80) 10^3/uL Hawkins # (Auto) (0.00-0.80) 10^3/uL Eos # (Auto) (0.00-0.45) 10^3/uL Baso # (Auto) 10^3/uL PT (9.7-12.3) SEC INR (0.92-1.18) Sodium (136-145) mEq/L Potassium (3.5-5.0) mEq/L Chloride (98-106) mEq/L Carbon Dioxide (21-32) mmol/L BUN (7-18) mg/dL Creatinine (0.6-1.0) mg/dL Est Cr Clr Drug Dosing mL/min Estimated GFR (MDRD) (>=60) mL/min Glucose (75-99) mg/dL POC Glucose 94 70 L (75-105) mg/dl Calcium (8.4-10.1) mg/dL C-Reactive Protein (0.2-0.8) mg/dL CHRIS Results - Last 24 hrs: Microbiology 02/20/20 13:40 Wound Culture - Final Leg, Left Proteus Mirabilis Staphylococcus Aureus Med Orders - Current: Current Medications Discontinued Medications Acetaminophen (Tylenol) 650 mg PO Q6H PRN PRN Reason: Fever Last Admin: 02/22/20 10:24 Dose: 650 mg Documented by: Atenolol (Tenormin) 50 mg PO DAILY [facility] Last Admin: 02/23/20 07:47 Dose: 50 mg Documented by: Barium Sulfate (Readi-Cat 2) 900 ml PO ONETIME ONE Stop: 02/20/20 12:54 Last Admin: 02/20/20 13:25 Dose: 900 ml Documented by: Citalopram Hydrobromide (Celexa) 20 mg PO DAILY [facility] Last Admin: 02/23/20 07:46 Dose: 20 mg Documented by: Dextrose/Water (Dextrose 50% In Water) 25 ml IVPUSH ONETIME STA Stop: 02/20/20 12:09 Last Admin: 02/20/20 12:15 Dose: 25 ml Documented by: Dextrose/Water (Dextrose 50% In Water) Confirm Administered Dose 50 ml .ROUTE .STK-MED ONE Stop: 02/20/20 12:29 Last Admin: 02/20/20 12:33 Dose: Not Given Documented by: Furosemide (Lasix) 40 mg PO DAILY [facility] Last Admin: 02/23/20 07:47 Dose: 40 mg Documented by: Glimepiride (Glimepiride) 2 mg PO DAILY [facility] Last Admin: 02/23/20 07:51 Dose: 2 mg Documented by: Piperacillin Sod/Tazobactam (Sod 3.375 gm/ Sodium Chloride) 100 mls @ 200 mls/hr IV Q8H [facility] Last Admin: 02/23/20 12:27 Dose: 200 mls/hr Documented by: Sodium Chloride (Normal Saline) 500 mls @ 250 mls/hr IV .BOLUS ONE Stop: 02/22/20 11:14 Last Admin: 02/22/20 09:30 Dose: 250 mls/hr Documented by: Insulin Glargine (Lantus Solostar) 20 units SUBCUT BID [facility] Last Admin: 02/23/20 12:21 Dose: Not Given Documented by: Iopamidol (Isovue-370 (76%)) 160 ml IVPUSH ONETIME ONE Stop: 02/20/20 12:54 Last Admin: 02/20/20 13:19 Dose: 160 ml Documented by: Levothyroxine Sodium (Synthroid) 200 mcg PO ACBREAKFAST [facility] Last Admin: 02/23/20 06:02 Dose: 200 mcg Documented by: Levothyroxine Sodium (Synthroid) 50 mcg PO ACBREAKFAST [facility] Last Admin: 02/23/20 06:02 Dose: 50 mcg Documented by: Loperamide HCl (Imodium) 2 mg PO Q6H PRN PRN Reason: Diarrhea Last Admin: 02/22/20 14:33 Dose: 2 mg Documented by: Nystatin (Nystop) 0 gm TOP BID [facility] Last Admin: 02/23/20 07:51 Dose: 1 applic Documented by: Sodium Chloride (Saline Flush) 10 ml FLUSH ASDIRECTED PRN PRN Reason: Keep Vein Open Warfarin Sodium (Coumadin) 3.75 mg PO TuWeFr@1200 [facility] Last Admin: 02/20/20 14:38 Dose: 3.75 mg Documented by: Warfarin Sodium (Coumadin) 7.5 mg PO Th@1200 CINTHIA Warfarin Sodium (Coumadin) 3.75 mg PO SUMOTUWEFRSA@1200 [facility] Last Admin: 02/23/20 12:29 Dose: 3.75 mg Documented by: - Exam General: Reports: Alert, Oriented, Cooperative HEENT: Reports: Mucous Membr. Moist/[place] Neck: Reports: Supple Lungs: Reports: Clear to Auscultation, Normal Respiratory Effort Cardiovascular: Reports: Irregular Rhythm GI/Abdominal Exam: Normal Bowel Sounds, Soft, Non-Tender Extremities: Pedal Edema, Other (Unna boots intact to legs. No redness noted above or below) Wound/Incisions: Reports: Dressing Dry and Intact Neurological: Reports: No New Focal Deficit
[2020-02-26] MEDS ORDERED: Warfarin 2.5 MG Tab PO SCH (12:00)
== END 2020-02-23 13:55 | disposition home health service (06) | DRG 603 ==
LOC: CC.MS 09:08 → CC.FCMC 09:08 → UNDOADMIN 10:50 → CC.MS 10:50
PROVIDERS: ADMIT Physician Assistant Medical; ATTEND Family Medicine
DX: L03.116 Cellulitis of left lower limb (principal); N18.4 Chronic kidney disease, stage 4 (severe); I48.20 Chronic atrial fibrillation, unspecified; E11.9 Type 2 diabetes mellitus without complications; L03.115 Cellulitis of right lower limb; R32 Unspecified urinary incontinence; I10 Essential (primary) hypertension; D64.9 Anemia, unspecified; E11.22 Type 2 diabetes mellitus with diabetic chronic kidney disease; Z79.01 Long term (current) use of anticoagulants; Z79.890 Hormone replacement therapy; Z79.899 Other long term (current) drug therapy; Z98.890 Other specified postprocedural states; Z90.89 Acquired absence of other organs; Z91.19 Patient's noncompliance with other medical treatment and regimen
CPT/HCPCS: 29580-GP; 36415; 74177; 80048; 80053; 82270; 82962; 83036; 83735; 85025; 85610; 86140; 87070; 87077; 87186; A9270-GY; J2543; J7040; J7050; Q9967

== ENCOUNTER 2020-05-10 06:35 | Emergency (ER) | payer MEDICARE, OTHER ==
[2020-05-10 06:42] VITALS: BP 134/74; PULSE 100
--- NOTE | 2020-05-10 07:42 | EDM.PDOC ---
ED HPI GENERAL MEDICAL PROBLEM - General Chief Complaint: Gastrointestinal Problem Stated Complaint: constipation Time Seen by Provider: 05/10/20 07:10 Source of Information: Reports: Patient History Limitations: Reports: No Limitations - History of Present Illness INITIAL COMMENTS - FREE TEXT/NARRATIVE: Patient presents to ER with complaints of lower quadrant abdominal discomfort related to constipation. States typically has 3-4 loose stools every day and hasn't had a BM now since Sunday. Took ex-lax and dulcolax tabs yesterday and ate "stewed tomatoes" and has not had any relief. No fevers. No nausea or vomiting. Has been eating well. Denies cough, chest congestion or shortness of breath. 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: Reports: Other Medication(s) Abdominal Pain Score (Numeric/FACES): 5 - Related Data Allergies Allergy/AdvReac Type Severity Reaction Status Date / Time codeine Allergy Nausea Verified 05/10/20 06:42 Home Meds: Home Meds Acetaminophen [Tylenol Arthritis Pain] 650 mg PO Q8HR PRN 12/02/13 [History] Cyanocobalamin (Vitamin B12) [Vitamin B12] 2,000 mcg IM ASDIRECTED 12/02/13 [History] Furosemide 40 mg PO DAILY 12/02/13 [History] Glimepiride 2 mg PO DAILY 12/02/13 [History] atenoloL [Atenolol] 50 mg PO DAILY 12/02/13 [History] Insulin Glargine,Hum.Rec.Anlog [Basaglar Kwikpen U-100] 20 unit SQ BID 05/30/19 [History] Levothyroxine Sodium [Synthroid] 50 mcg PO ACBREAKFAST 05/30/19 [History] Levothyroxine Sodium [Synthroid] 200 mcg PO ACBREAKFAST 05/30/19 [History] Warfarin [Coumadin] 7.5 mg PO TUSA 05/30/19 [History] Warfarin [Coumadin] 3.75 mg PO SUMOWETHFR 02/20/20 [History] Escitalopram [Lexapro] 10 mg PO DAILY 05/10/20 [History] Nystatin [Nystop] 0 gm TOP QID PRN 05/10/20 [History] Past Medical History HEENT History: Reports: Cataract Cardiovascular History: Reports: Heart Failure, Hypertension, SOB on Exertion Respiratory History: Reports: SOB Genitourinary History: Reports: Renal Calculus Musculoskeletal History: Reports: Arthritis, Gout, Osteoporosis Psychiatric History: Reports: Anxiety, Depression Endocrine/Metabolic History: Reports: Diabetes, Type II, IDDM, Obesity/BMI 30+, Vitamin D Deficiency Hematologic History: Reports: Anemia, B12 Deficiency Oncologic (Cancer) History: Reports: Basal Cell Carcinoma - Past Surgical History HEENT Surgical History: Reports: None Cardiovascular Surgical History: Reports: None Respiratory Surgical History: Reports: None GI Surgical History: Reports: Cholecystectomy, Colonoscopy, Hernia, Abdominal Musculoskeletal Surgical History: Reports: None Social & Family History - Family History Family Medical History: Noncontributory - Tobacco Use Smoking Status *Q: Never Smoker - Caffeine Use Caffeine Use: Reports: Coffee, Soda - Recreational Drug Use Recreational Drug Use: No ED ROS GENERAL - Review of Systems Review Of Systems: See Below Constitutional: Denies: Fever, Chills, Malaise, Weakness, Decreased Appetite HEENT: Reports: No Symptoms Respiratory: Denies: Shortness of Breath, Cough Cardiovascular: Denies: Chest Pain, Edema, Lightheadedness Endocrine: Reports: No Symptoms GI/Abdominal: Reports: Abdominal Pain, Constipation. Denies: Nausea, Vomiting : Reports: No Symptoms ED EXAM, GI/ABD - Physical Exam Exam: See Below Exam Limited By: No Limitations General Appearance: Alert, WD/WN, No Apparent Distress Ears: Normal External Exam, Normal TMs Nose: Normal Inspection, Normal Mucosa, No Blood Throat/Mouth: Normal Inspection, Normal Oropharynx Neck: Normal Inspection, Supple, Non-Tender Respiratory/Chest: No Respiratory Distress, Lungs Clear, Normal Breath Sounds Cardiovascular: Regular Rate, Rhythm GI/Abdominal Exam: Normal Bowel Sounds, Soft, Non-Tender (admits that pain is now resolved as had bowel movement while down in Xray) Skin Exam: Warm, Dry Course - Vital Signs Last Recorded V/S: Last Vital Signs Temp 97 F 05/10/20 06:38 Pulse 100 05/10/20 06:38 Resp 18 05/10/20 06:38 BP 134/74 05/10/20 06:38 Pulse Ox 95 05/10/20 06:38 - Orders/Labs/Meds Orders: Active Orders 24 hr Category Date Time Status Abdomen 2V AP Flat Upright [CR] Stat Exams 05/10/20 06:48 Taken Labs: Laboratory Tests 05/10/20 05/10/20 05/10/20 Range/Units 06:47 06:47 06:47 WBC 9.3 (5.0-10.0) 10^3/uL RBC 4.56 (4.00-5.50) 10^6/uL Hgb 11.2 L (12.0-16.0) g/dL Hct 37.3 (37.0-47.0) % MCV 81.8 L (82.0-94.0) fL MCH 24.6 L (27.0-32.0) pg MCHC 30.0 L (33.0-38.0) g/dL RDW Coeff of Chris 17.8 H (11.0-15.0) % Plt Count 600 H (150-400) 10^3/uL Neut % (Auto) 80.0 (35-85) % Lymph % (Auto) 13.6 (10-55) % [place] % (Auto) 6.2 (0-16) % Eos % (Auto) 0.1 (0-5) % Baso % (Auto) 0.1 (0-3) % Neut # (Auto) 7.45 H (1.80-7.00) 10^3/uL Lymph # (Auto) 1.27 (1.00-4.80) 10^3/uL [place] # (Auto) 0.58 (0.00-0.80) 10^3/uL Eos # (Auto) 0.01 (0.00-0.45) 10^3/uL Baso # (Auto) 0.01 10^3/uL PT (9.7-12.3) SEC INR (0.92-1.18) Sodium 141 (136-145) mEq/L Potassium 4.7 (3.5-5.0) mEq/L Chloride 105 (98-106) mEq/L Carbon Dioxide 26 (21-32) mmol/L BUN 31 H (7-18) mg/dL Creatinine 1.5 H (0.6-1.0) mg/dL Est Cr Clr Drug Dosing 30.80 mL/min Estimated GFR (MDRD) 34 L (>=60) mL/min Glucose 162 H D (75-99) mg/dL Calcium 8.9 (8.4-10.1) mg/dL Total Bilirubin 0.5 (0.0-1.0) mg/dL AST 14 L (15-37) U/L ALT 13 (12-78) U/L Alkaline Phosphatase 63 (46-116) U/L C-Reactive Protein 6.7 H (0.2-0.8) mg/dL Total Protein 7.9 (6.4-8.2) g/dL Albumin 2.9 L (3.4-5.0) g/dL Urine Color Yellow (YELLOW) Urine Appearance Clear (CLEAR) Urine pH 5.0 (4.5-8.0) Ur Specific [place] 1.015 (1.003-1.020) Urine Protein 30 H (NEGATIVE) mg/dL Urine Glucose (UA) Negative (NEGATIVE) mg/dL Urine Ketones Negative (NEGATIVE) mg/dL Urine Occult Blood Negative (NEGATIVE) Urine Nitrite Negative (NEGATIVE) Urine Bilirubin Negative (NEGATIVE) Urine Urobilinogen 0.2 (0.2-1.0) EU/dL Ur Leukocyte Esterase Negative (NEGATIVE) Urine RBC 0-5 (0-5) /HPF Urine WBC 0-5 (0-5) /HPF Ur Squamous Epith Cells Few H (NOT SEEN) /HPF Amorphous Sediment Few H (NOT SEEN) /HPF 12/ Range/Units 06:54 WBC (5.0-10.0) 10^3/uL RBC (4.00-5.50) 10^6/uL Hgb (12.0-16.0) g/dL Hct (37.0-47.0) % MCV (82.0-94.0) fL MCH (27.0-32.0) pg MCHC (33.0-38.0) g/dL RDW Coeff of Chris (11.0-15.0) % Plt Count (150-400) 10^3/uL Neut % (Auto) (35-85) % Lymph % (Auto) (10-55) % [place] % (Auto) (0-16) % Eos % (Auto) (0-5) % Baso % (Auto) (0-3) % Neut # (Auto) (1.80-7.00) 10^3/uL Lymph # (Auto) (1.00-4.80) 10^3/uL [place] # (Auto) (0.00-0.80) 10^3/uL Eos # (Auto) (0.00-0.45) 10^3/uL Baso # (Auto) 10^3/uL PT 32.2 H (9.7-12.3) SEC INR 3.23 H (0.92-1.18) Sodium (136-145) mEq/L Potassium (3.5-5.0) mEq/L Chloride (98-106) mEq/L Carbon Dioxide (21-32) mmol/L BUN (7-18) mg/dL Creatinine (0.6-1.0) mg/dL Est Cr Clr Drug Dosing mL/min Estimated GFR (MDRD) (>=60) mL/min Glucose (75-99) mg/dL Calcium (8.4-10.1) mg/dL Total Bilirubin (0.0-1.0) mg/dL AST (15-37) U/L ALT (12-78) U/L Alkaline Phosphatase (46-116) U/L C-Reactive Protein (0.2-0.8) mg/dL Total Protein (6.4-8.2) g/dL Albumin (3.4-5.0) g/dL Urine Color (YELLOW) Urine Appearance (CLEAR) Urine pH (4.5-8.0) Ur Specific [place] (1.003-1.020) Urine Protein (NEGATIVE) mg/dL Urine Glucose (UA) (NEGATIVE) mg/dL Urine Ketones (NEGATIVE) mg/dL Urine Occult Blood (NEGATIVE) Urine Nitrite (NEGATIVE) Urine Bilirubin (NEGATIVE) Urine Urobilinogen (0.2-1.0) EU/dL Ur Leukocyte Esterase (NEGATIVE) Urine RBC (0-5) /HPF Urine WBC (0-5) /HPF Ur Squamous Epith Cells (NOT SEEN) /HPF Amorphous Sediment (NOT SEEN) /HPF - Re-Assessments/Exams Free Text/Narrative Re-Assessment/Exam: 05/10/20 Patient feeling much better on my arrival as had bowel movement in Xray and said pain is now gone. Xray does show air loops but no obstruction. Xray difficult to read due to size. Labs are all normal. Departure - Departure Time of Disposition: 07:42 Disposition: Home, Self-Care 01 Condition: Good Clinical Impression: Constipation - Discharge Information *PRESCRIPTION DRUG MONITORING PROGRAM REVIEWED*: No *COPY OF PRESCRIPTION DRUG MONITORING REPORT IN PATIENT NIXON: No Instructions: Constipation, Adult Forms: ED Department Discharge Additional Instructions: 1. Push fluids 2. Increase fiber in diet 3. Miralax as needed for regulation of bowel movements 4. Follow up if increasing pain or concern. Sepsis Event Note (ED) - Evaluation Sepsis Screening Result: No Definite Risk - Focused Exam Vital Signs: Vital Signs Temp Pulse Resp BP Pulse Ox 05/10/20 06:38 97 F 100 18 134/74 95 - My Orders Last 24 Hours: My Active Orders 05/10/20 06:48 Abdomen 2V AP Flat Upright [CR] Stat - Assessment/Plan Last 24 Hours: My Active Orders 05/10/20 06:48 Abdomen 2V AP Flat Upright [CR] Stat
== END 2020-05-10 07:51 | disposition home or self-care (01) ==
LOC: CC.ED 06:35
DX: K59.00 Constipation, unspecified (principal); I11.0 Hypertensive heart disease with heart failure; I50.9 Heart failure, unspecified; E11.9 Type 2 diabetes mellitus without complications; E66.9 Obesity, unspecified; F41.9 Anxiety disorder, unspecified; F32.9 Major depressive disorder, single episode, unspecified; Z90.49 Acquired absence of other specified parts of digestive tract; Z68.35 Body mass index [BMI] 35.0-35.9, adult; Z88.5 Allergy status to narcotic agent; Z79.4 Long term (current) use of insulin; Z79.899 Other long term (current) drug therapy
CPT/HCPCS: 36415; 74019; 80053; 81001; 85025; 85610; 86140; 99283-25; 99284

== ENCOUNTER 2020-06-01 09:46 | Emergency (ER) | payer MEDICARE, OTHER ==
--- NOTE | 2020-06-01 11:12 | EDM.PDOC ---
ED HPI GENERAL MEDICAL PROBLEM - General Chief Complaint: General Stated Complaint: anxiety Time Seen by Provider: 06/01/20 10:35 Source of Information: Reports: Patient History Limitations: Reports: No Limitations - History of Present Illness INITIAL COMMENTS - FREE TEXT/NARRATIVE: Chely is a 75 yo female who presents to the ED with multiple concerns. States she got into an argument with her and son today and had increased anxiety from it this morning. States her son thinks he can take her call whenever he wants and it got her worked up this morning. Questions if she has a bladder infection as well. States she hasn't been doing well with her diet and has noticed her legs to be swollen again and leaking fluid. Questions if she can get Unna boots put on today. States she has been having more salt than she should but has been taking her medications as she should. Has appointment with Marlene Rivera on the 17 of June and states she is to see her primary pr ovider, Waleska Rock, on the 18 of June. States with her anxiety she would like to see Marlene sooner if she could. - Related Data Allergies Allergy/AdvReac Type Severity Reaction Status Date / Time codeine Allergy Nausea Verified 06/01/20 11:15 Home Meds: Home Meds Acetaminophen [Tylenol Arthritis Pain] 650 mg PO Q8HR PRN 12/02/13 [History] Cyanocobalamin (Vitamin B12) [Vitamin B12] 2,000 mcg IM ASDIRECTED 12/02/13 [History] Furosemide 40 mg PO DAILY 12/02/13 [History] Glimepiride 2 mg PO DAILY 12/02/13 [History] atenoloL [Atenolol] 50 mg PO DAILY 12/02/13 [History] Insulin Glargine,Hum.Rec.Anlog [Basaglar Kwikpen U-100] 20 unit SQ BID 05/30/19 [History] Levothyroxine Sodium [Synthroid] 50 mcg PO ACBREAKFAST 05/30/19 [History] Levothyroxine Sodium [Synthroid] 200 mcg PO ACBREAKFAST 05/30/19 [History] Warfarin [Coumadin] 7.5 mg PO TUSA 05/30/19 [History] Warfarin [Coumadin] 3.75 mg PO SUMOWETHFR 02/20/20 [History] Escitalopram [Lexapro] 10 mg PO DAILY 05/10/20 [History] Nystatin [Nystop] 0 gm TOP QID PRN 05/10/20 [History] Cefuroxime Axetil [Ceftin] 500 mg PO BID #14 tablet 06/01/20 [Rx] Past Medical History HEENT History: Reports: Cataract Cardiovascular History: Reports: Heart Failure, Hypertension, SOB on Exertion Respiratory History: Reports: SOB Genitourinary History: Reports: Renal Calculus Musculoskeletal History: Reports: Arthritis, Gout, Osteoporosis Psychiatric History: Reports: Anxiety, Depression Endocrine/Metabolic History: Reports: Diabetes, Type II, IDDM, Obesity/BMI 30+, Vitamin D Deficiency Hematologic History: Reports: Anemia, B12 Deficiency Oncologic (Cancer) History: Reports: Basal Cell Carcinoma - Past Surgical History HEENT Surgical History: Reports: None Cardiovascular Surgical History: Reports: None Respiratory Surgical History: Reports: None GI Surgical History: Reports: Cholecystectomy, Colonoscopy, Hernia, Abdominal Musculoskeletal Surgical History: Reports: None Social & Family History - Family History Family Medical History: Noncontributory - Caffeine Use Caffeine Use: Reports: Coffee, Soda ED ROS GENERAL - Review of Systems Review Of Systems: See Below Constitutional: Reports: Weight Gain HEENT: Reports: No Symptoms Respiratory: Reports: No Symptoms Cardiovascular: Reports: Edema GI/Abdominal: Reports: No Symptoms : Reports: Dysuria, Frequency Musculoskeletal: Reports: No Symptoms Skin: Reports: Wound (wheeping edema to bilateral lower extremities. ) Neurological: Reports: No Symptoms Psychiatric: Reports: Anxiety ED EXAM, GENERAL - Physical Exam Exam: See Below Exam Limited By: No Limitations General Appearance: Alert, WD/WN, No Apparent Distress Nose: Normal Inspection, Normal Mucosa, No Blood Throat/Mouth: Normal Inspection, Normal Oropharynx, Normal Voice, No Airway Compromise Head: Atraumatic, Normocephalic Neck: Normal Inspection, Supple Respiratory/Chest: No Respiratory Distress, Lungs Clear, Normal Breath Sounds, No Accessory Muscle Use Cardiovascular: No Murmur, Irregularly Irregular. No: No Edema Peripheral Pulses: 1+: Dorsalis Pedis (L), Dorsalis Pedis (R) GI/Abdominal: Normal Bowel Sounds, Soft, Non-Tender, Other (morbid obesity) Extremities: Pedal Edema (2+ pitting, weeping edema to bilateral lower extremities. R>L, mild warmth noted to left lower extremity) Neurological: Alert, Oriented, Normal Cognition Psychiatric: Normal Affect, Normal Mood Skin Exam: Erythema (bilateral lower extremities) Course - Vital Signs Last Recorded V/S: Last Vital Signs Temp 97.9 F 06/01/20 10:00 Pulse 75 06/01/20 10:00 Resp 18 06/01/20 10:00 BP 135/72 06/01/20 10:00 Pulse Ox 96 06/01/20 10:00 - Orders/Labs/Meds Orders: Active Orders 24 hr Category Date Time Status CULTURE URINE [RM] Stat Lab 06/01/20 10:48 Received Labs: Laboratory Tests 06/01/20 06/01/20 06/01/20 Range/Units 09:49 10:48 10:48 WBC 8.2 (5.0-10.0) 10^3/uL RBC 3.91 L (4.00-5.50) 10^6/uL Hgb 9.5 L (12.0-16.0) g/dL Hct 32.5 L (37.0-47.0) % MCV 83.1 (82.0-94.0) fL MCH 24.3 L (27.0-32.0) pg MCHC 29.2 L (33.0-38.0) g/dL RDW Coeff of Chris 17.5 H (11.0-15.0) % Plt Count 550 H (150-400) 10^3/uL Neut % (Auto) 75.6 (35-85) % Lymph % (Auto) 17.2 (10-55) % [place] % (Auto) 5.5 (0-16) % Eos % (Auto) 1.6 (0-5) % Baso % (Auto) 0.1 (0-3) % Neut # (Auto) 6.16 (1.80-7.00) 10^3/uL Lymph # (Auto) 1.40 (1.00-4.80) 10^3/uL [place] # (Auto) 0.45 (0.00-0.80) 10^3/uL Eos # (Auto) 0.13 (0.00-0.45) 10^3/uL Baso # (Auto) 0.01 10^3/uL PT (9.7-12.3) SEC INR (0.92-1.18) Sodium (136-145) mEq/L Potassium (3.5-5.0) mEq/L Chloride (98-106) mEq/L Carbon Dioxide (21-32) mmol/L BUN (7-18) mg/dL Creatinine (0.6-1.0) mg/dL Est Cr Clr Drug Dosing mL/min Estimated GFR (MDRD) (>=60) mL/min Glucose (75-99) mg/dL Calcium (8.4-10.1) mg/dL Total Bilirubin (0.0-1.0) mg/dL AST (15-37) U/L ALT (12-78) U/L Alkaline Phosphatase (46-116) U/L C-Reactive Protein (0.2-0.8) mg/dL NT-Pro-B Natriuret Pep (0-1000) pg/mL Total Protein (6.4-8.2) g/dL Albumin (3.4-5.0) g/dL Urine Color Yellow (YELLOW) Urine Appearance Cloudy (CLEAR) Urine pH 5.0 (4.5-8.0) Ur Specific [place] 1.025 H (1.003-1.020) Urine Protein 30 H (NEGATIVE) mg/dL Urine Glucose (UA) Negative (NEGATIVE) mg/dL Urine Ketones Negative (NEGATIVE) mg/dL Urine Occult Blood Moderate H (NEGATIVE) Urine Nitrite Negative (NEGATIVE) Urine Bilirubin Negative (NEGATIVE) Urine Urobilinogen 0.2 (0.2-1.0) EU/dL Ur Leukocyte Esterase Small H (NEGATIVE) Urine RBC 5-10 H (0-5) /HPF Urine WBC 5-10 H (0-5) /HPF Ur Squamous Epith Cells Moderate H (NOT SEEN) /HPF Amorphous Sediment Few H (NOT SEEN) /HPF Urine Mucus Few H (NOT SEEN) /HPF SARS CoV-2 RNA Rapid VIOLETTE Negative (NEGATIVE) 06/01/20 06/01/20 Range/Units 10:48 11:07 WBC (5.0-10.0) 10^3/uL RBC (4.00-5.50) 10^6/uL Hgb (12.0-16.0) g/dL Hct (37.0-47.0) % MCV (82.0-94.0) fL MCH (27.0-32.0) pg MCHC (33.0-38.0) g/dL RDW Coeff of Chris (11.0-15.0) % Plt Count (150-400) 10^3/uL Neut % (Auto) (35-85) % Lymph % (Auto) (10-55) % [place] % (Auto) (0-16) % Eos % (Auto) (0-5) % Baso % (Auto) (0-3) % Neut # (Auto) (1.80-7.00) 10^3/uL Lymph # (Auto) (1.00-4.80) 10^3/uL [place] # (Auto) (0.00-0.80) 10^3/uL Eos # (Auto) (0.00-0.45) 10^3/uL Baso # (Auto) 10^3/uL PT 34.6 H (9.7-12.3) SEC INR 3.47 H (0.92-1.18) Sodium 143 (136-145) mEq/L Potassium 4.4 (3.5-5.0) mEq/L Chloride 108 H (98-106) mEq/L Carbon Dioxide 27 (21-32) mmol/L BUN 29 H (7-18) mg/dL Creatinine 1.4 H (0.6-1.0) mg/dL Est Cr Clr Drug Dosing 33.00 mL/min Estimated GFR (MDRD) 37 L (>=60) mL/min Glucose 94 D (75-99) mg/dL Calcium 8.7 (8.4-10.1) mg/dL Total Bilirubin 0.2 (0.0-1.0) mg/dL AST 10 L (15-37) U/L ALT 10 L (12-78) U/L Alkaline Phosphatase 62 (46-116) U/L C-Reactive Protein 2.2 H (0.2-0.8) mg/dL NT-Pro-B Natriuret Pep 3364 H (0-1000) pg/mL Total Protein 7.3 (6.4-8.2) g/dL Albumin 2.6 L (3.4-5.0) g/dL Urine Color (YELLOW) Urine Appearance (CLEAR) Urine pH (4.5-8.0) Ur Specific [place] (1.003-1.020) Urine Protein (NEGATIVE) mg/dL Urine Glucose (UA) (NEGATIVE) mg/dL Urine Ketones (NEGATIVE) mg/dL Urine Occult Blood (NEGATIVE) Urine Nitrite (NEGATIVE) Urine Bilirubin (NEGATIVE) Urine Urobilinogen (0.2-1.0) EU/dL Ur Leukocyte Esterase (NEGATIVE) Urine RBC (0-5) /HPF Urine WBC (0-5) /HPF Ur Squamous Epith Cells (NOT SEEN) /HPF Amorphous Sediment (NOT SEEN) /HPF Urine Mucus (NOT SEEN) /HPF SARS CoV-2 RNA Rapid VIOLETTE (NEGATIVE) Departure - Departure Time of Disposition: 12:23 Disposition: Home, Self-Care 01 Clinical Impression: Edema of both lower extremities, Anxiety, CHF, Congestive heart failure UTI (urinary tract infection) Qualifiers: Urinary tract infection type: acute cystitis Hematuria presence: without hematuria Qualified Code(s): N30.00 - Acute cystitis without hematuria - Discharge Information *PRESCRIPTION DRUG MONITORING PROGRAM REVIEWED*: Not Applicable *COPY OF PRESCRIPTION DRUG MONITORING REPORT IN PATIENT NIXON: Not Applicable Prescriptions: Cefuroxime Axetil [Ceftin] 500 mg PO BID #14 tablet Forms: ED Department Discharge Additional Instructions: 1) Appointment scheduled with Marlene Rivera today at 1:00pm 2) Urinalysis did show concerns of UTI, will obtain culture 3) Antibiotic sent to [facility] to start in regards to UTI 4) Physical therapy today for Unna boot placement. Will get a time while seeing Marlene and alert patient 5) Follow up with Waleska Rock, primary provider, for recheck next week. 6) Will decrease Coumadin dose to 1/2 tablet every day as INR was slightly high. Waleska will recheck next week. 7) Increase Furosemide to 40mg twice a day, morning and lunch until follow up with Waleska Rock. I called pharmacy and they are going to prepack medications for you. *Return to ED if any concerns Sepsis Event Note (ED) - Focused Exam Vital Signs: Vital Signs Temp Pulse Resp BP Pulse Ox 06/01/20 10:00 97.9 F 75 18 135/72 96 - Problem List & Annotations (1) Anxiety SNOMED Code(s): 88232982 Code(s): F41.9 - ANXIETY DISORDER, UNSPECIFIED Status: Acute (2) CHF, Congestive heart failure SNOMED Code(s): 44089181 Code(s): I50.9 - HEART FAILURE, UNSPECIFIED Status: Acute (3) Edema of both lower extremities SNOMED Code(s): 288927704, 80371015, 490537120 Code(s): R60.0 - LOCALIZED EDEMA Status: Acute (4) UTI (urinary tract infection) SNOMED Code(s): 85554204 Code(s): N39.0 - URINARY TRACT INFECTION, SITE NOT SPECIFIED Status: Acute Qualifiers: Urinary tract infection type: acute cystitis Hematuria presence: without hematuria Qualified Code(s): N30.00 - Acute cystitis without hematuria - My Orders Last 24 Hours: My Active Orders 06/01/20 10:48 CULTURE URINE [RM] Stat - Assessment/Plan Last 24 Hours: My Active Orders 06/01/20 10:48 CULTURE URINE [RM] Stat Plan: Please see additional instructions for plan details.
[2020-06-01 11:15] VITALS: BP 135/72; PULSE 75
== END 2020-06-01 12:35 | disposition home or self-care (01) ==
LOC: CC.ED 09:46
DX: F41.9 Anxiety disorder, unspecified (principal); N30.00 Acute cystitis without hematuria; I11.0 Hypertensive heart disease with heart failure; I50.9 Heart failure, unspecified; E11.9 Type 2 diabetes mellitus without complications; F32.9 Major depressive disorder, single episode, unspecified; E66.01 Morbid (severe) obesity due to excess calories; Z68.41 Body mass index [BMI] 40.0-44.9, adult; Z20.828 Contact with and (suspected) exposure to other viral communicable diseases; Z88.5 Allergy status to narcotic agent; Z90.49 Acquired absence of other specified parts of digestive tract; Z79.899 Other long term (current) drug therapy
CPT/HCPCS: 36415; 80053; 81001; 83880; 85025; 85610; 86140; 87086; 87804; 99283; 99284; U0002